=== PATIENT | male | born 1965 | race Caucasian/White ===

== ENCOUNTER 2018-07-16 07:15 | Observation (INO) ==
--- NOTE | 2018-07-16 07:51 | Emergency Department Note ---
Disposition Clinical Impression: Left upper quadrant pain, Multiple rib fractures involving four or more ribs, Lactic acidemia Disposition: Admitted As Inpatient Condition: Fair Time of Disposition: 13:06 Abdominal Pain HPI - General Chief Complaint: ED Abdominal Pain Stated Complaint: LUQ pain Time Seen by Provider: 07/16/18 07:23 Source: patient Nursing Notes Reviewed: Yes Vital Signs Reviewed: Yes - History of Present Illness HPI Narrative: 53-year-old male presents from home for evaluation of left upper quadrant pain. This is a bit persistent for the past 3 months. Patient had a mechanical fall onto the edge of a bucket of [employer]. He has been evaluated by his primary care physician who recommended watchful waiting. Patient presents today because he has persistent pain which he localizes to the left inferior aspect of the ribs in the midaxillary line. Patient also has associated flulike symptoms but he is far less concerned about the symptoms and he has since left upper quadrant pain. PMH: None Habits: Currently everyday smoker. Heavy alcohol use. ROS: Positive: As above Negative: Recent trauma, dysuria, material, measured fever, pain with breathing Pain Scale: 5 - Related Data Home Medications Medication Instructions Recorded Confirmed Losartan 50 mg DAILY 07/16/18 07/16/18 Naproxen Sodium [Aleve] 220 mg PO PRN PRN 07/16/18 07/16/18 Allergies Allergy/AdvReac Type Severity Reaction Status Date / Time No Known Allergies Allergy Verified 07/16/18 07:21 All systems ED: reviewed and negative except as stated. Review of Systems: As Per HPI Abdominal Pain PMH - Past Medical History Medical history: Reports: other Male Surgical History: Reports: orthopedic, other Psychiatric history: Reports: no psych history - Social History Smoking status: Current every day smoker Alcohol use: Reports: heavy Drug use: Reports: none Physical Exam Vital Signs Reviewed General: Patient is alert, oriented, and in no acute distress. Head: atraumatic, normocephalic Eye: normal appearance, PERRL, EOMI, no scleral icterus, no conjunctival injection ENT: mucous membranes moist, normal external ear exam Neck: normal inspection, trachea midline, full ROM Chest: normal inspection, symmetric chest rise. Pain to palpation of left in ferior ribs abdomen. Respiratory: Good respiratory effort. Bilateral breath sounds are clear without wheezing, crackles, or rhonchi. Cardiovascular: Regular rate and rhythm. No clicks, rubs, gallops, or murmors. Normal heart sounds. Abdomen: Bowel sounds present normoactive. Abdomen is soft, nondistended, and nontender. No guarding or rebound. No organomegaly noted. Musculoskeletal: Spontaneously moving all extremities. Skin: warm, dry, intact. Neuro: GCS 15. No focal neurologic deficits observed. Psych: Patient's affect is appropriate for situation. - General Limitations: no limitations General appearance: alert, in no apparent distress Course Course Narrative: Lidocaine pain patch provided for the patient's left-sided rib pain. Chest x- ray is unremarkable. Rib films show left anterolateral eighth through 11 rib fracture likely secondary to the patient's fall several months ago. CT abdomen pelvis redemonstrated the rib fractures as well as fatty liver and emphysema. Urinalysis was ordered as patient had no complaints of dysuria; CT pelvis is incidentally found indeterminate bladder wall thickening. Patient's lab work is concerning for mild leukocytosis as well as lactic acid of 4.0. Patient is receiving fluids. I do not have expiration for his lactic acidemia or leukocytosis. Patient is agreeable to admission for pain control, continued fluids and evaluation for his laboratory abnormalities. I discussed the above with the admitting hospitalist, Dr. Russell, who agrees to accept patient for continued evaluation monitoring. Ribs w/Chest X-Ray 07/16/18 07:47 IMPRESSION: Subacute healing nondisplaced fractures of the left anterolateral 8th through 11th ribs. No evidence of pneumothorax. No acute process in the lungs. D/ / Ag Albright MD / Ag Albright MD Interpreting Provider: Ag Albright MD Abdomen/Pelvis CT 07/16/18 09:35 IMPRESSION: 1. No acute solid organ injury. 2. Subacute left 9th and 10th posterolateral rib fractures. 3. Fatty liver. 4. Emphysema with bibasilar atelectasis or scarring. 5. Indeterminate bladder wall thickening. Correlate urinalysis versus direct visual inspection as warranted. D/ / 07/16/2018 10:33:59 Pankaj Pichardo MD / mina Interpreting Provider: Pankaj Pichardo MD Vital Signs Temperature 98.7 F 07/16/18 07:16 Pulse Rate 145 07/16/18 07:16 Respiratory Rate 18 07/16/18 07:16 Blood Pressure 92/77 07/16/18 07:16 O2 Sat by Pulse Oximetry 98 07/16/18 07:16 Temperature 98.7 F 07/16/18 07:16 Pulse Rate 107 07/16/18 12:16 Respiratory Rate 16 07/16/18 12:16 Blood Pressure 148/82 07/16/18 12:16 O2 Sat by Pulse Oximetry 97 07/16/18 12:16 Oxygen Delivery Oxygen Delivery Room Air Abdominal Pain - Lab Data Result diagrams: 07/16/18 07:40 07/16/18 07:40 Lab Results 07/16/18 07/16/18 07/16/18 Range/Units 07:40 07:40 07:40 WBC 15.8 H (4.3-11.1) K/mcL RBC 4.60 (4.19-5.50) M/mcL Hgb 15.9 (12.9-16.9) g/dL Hct 46.6 (37.5-50.1) % MCV 101.3 H (83.0-100.0) fL MCH 34.6 H (28.0-33.3) pg MCHC 34.1 (31.6-35.5) g/dL RDW 13.2 (11.5-14.5) % Plt Count 330 (140-400) K/mcL MPV 10.0 (9.4-12.4) fL Immature Gran % 0.4 (0-4) % Seg Neutrophils % 82.0 % Lymphocytes % 9.4 % Monocytes % 7.0 % Eosinophils % 0.4 % Basophils % 0.8 % Neutrophils # 12.9 H (1.6-8.9) K/mcL Lymphocytes # 1.5 (0.6-4.6) K/mcL Monocytes # 1.1 (0.0-1.3) K/mcL Eosinophils # 0.1 (0.0-0.6) K/mcL Basophils # 0.1 (0.0-0.2) K/mcL PT 10.9 (9.4-12.1) Seconds INR 1.0 Sodium 136 (136-145) mEq/L Potassium 3.8 (3.5-5.1) mEq/L Chloride 96 L (98-107) mEq/L Carbon Dioxide 18 L (23-29) mEq/L BUN 17 (6-20) mg/dL Creatinine 0.84 (0.70-1.30) mg/dL Est GFR ( Amer) > 60 (> 60) Est GFR (Non-Af Amer) > 60 (> 60) BUN/Creatinine Ratio 20 (6-26) Glucose 75 (70-105) mg/dL Calculated Osmolality 282 (280-300) Lactic Acid (0.5-2.2) mmol/L Calcium 9.2 (8.6-10.3) mg/dL Total Bilirubin 1.1 H (0.3-1.0) mg/dL Direct Bilirubin 0.3 H (0.0-0.2) mg/dL Indirect Bilirubin 0.8 (0.0-1.2) mg/dL AST 85 H (13-39) Units/L ALT 34 (7-52) Units/L Alkaline Phosphatase 71 (34-104) Units/L Serum Total Protein 8.4 (6.4-8.9) g/dL Albumin 4.5 (3.5-5.7) g/dL Globulin 3.9 H (2.4-3.5) g/dL Albumin/Globulin Ratio 1.2 (1.1-2.2) Lipase 34 (11-82) Units/L Urine Color (Yellow) Urine Clarity (Clear) Urine pH (5.0-8.0) pH Units Ur Specific [place] (1.010-1.025) Urine Protein (Neg-Trace) mg/dL Urine Glucose (UA) (Normal) mg/dL Urine Ketones (Negative) mg/dL Urine Blood (Negative) Urine Nitrite (Negative) Urine Bilirubin (Negative) Urine Urobilinogen (Normal) mg/dL Ur Leukocyte Esterase (Negative) Urine Microscopic RBC (0-3) per hpf Urine Microscopic WBC (0-3) per hpf Ur Squamous Epith Cells (None-Few) per lpf Urine Bacteria (None-Few) per hpf Hyaline Casts (None-Few) per lpf Ur Culture Indicated? (NO) 07/16/18 07/16/18 Range/Units 08:53 09:21 WBC (4.3-11.1) K/mcL RBC (4.19-5.50) M/mcL Hgb (12.9-16.9) g/dL Hct (37.5-50.1) % MCV (83.0-100.0) fL MCH (28.0-33.3) pg MCHC (31.6-35.5) g/dL RDW (11.5-14.5) % Plt Count (140-400) K/mcL MPV (9.4-12.4) fL Immature Gran % (0-4) % Seg Neutrophils % % Lymphocytes % % Monocytes % % Eosinophils % % Basophils % % Neutrophils # (1.6-8.9) K/mcL Lymphocytes # (0.6-4.6) K/mcL Monocytes # (0.0-1.3) K/mcL Eosinophils # (0.0-0.6) K/mcL Basophils # (0.0-0.2) K/mcL PT (9.4-12.1) Seconds INR Sodium (136-145) mEq/L Potassium (3.5-5.1) mEq/L Chloride (98-107) mEq/L Carbon Dioxide (23-29) mEq/L BUN (6-20) mg/dL Creatinine (0.70-1.30) mg/dL Est GFR ( Amer) (> 60) Est GFR (Non-Af Amer) (> 60) BUN/Creatinine Ratio (6-26) Glucose (70-105) mg/dL Calculated Osmolality (280-300) Lactic Acid 4.0 H* (0.5-2.2) mmol/L Calcium (8.6-10.3) mg/dL Total Bilirubin (0.3-1.0) mg/dL Direct Bilirubin (0.0-0.2) mg/dL Indirect Bilirubin (0.0-1.2) mg/dL AST (13-39) Units/L ALT (7-52) Units/L Alkaline Phosphatase (34-104) Units/L Serum Total Protein (6.4-8.9) g/dL Albumin (3.5-5.7) g/dL Globulin (2.4-3.5) g/dL Albumin/Globulin Ratio (1.1-2.2) Lipase (11-82) Units/L Urine Color Dark Yellow (Yellow) Urine Clarity Clear (Clear) Urine pH 5.5 (5.0-8.0) pH Units Ur Specific [place] 1.020 (1.010-1.025) Urine Protein 100 H (Neg-Trace) mg/dL Urine Glucose (UA) Normal (Normal) mg/dL Urine Ketones 80 H (Negative) mg/dL Urine Blood Negative (Negative) Urine Nitrite Negative (Negative) Urine Bilirubin Small H (Negative) Urine Urobilinogen Normal (Normal) mg/dL Ur Leukocyte Esterase Negative (Negative) Urine Microscopic RBC 0-3 (0-3) per hpf Urine Microscopic WBC 0-3 (0-3) per hpf Ur Squamous Epith Cells Many H (None-Few) per lpf Urine Bacteria None Seen (None-Few) per hpf Hyaline Casts None Seen (None-Few) per lpf Ur Culture Indicated? NO (NO)
--- NOTE | 2018-07-16 07:53 | Emergency Department Note ---
Disposition Clinical Impression: Left upper quadrant pain Disposition: Still a Patient Forms: ED Satisfaction Letter, Work/School Release General Adult HPI - General Chief complaint: ED Abdominal Pain Stated complaint: LUQ pain Time Seen by Provider: 07/16/18 07:23 Source: patient Limitations: no limitations Nursing Notes Reviewed: Yes Vital Signs Reviewed: Yes - History of Present Illness HPI Narrative: ED attending attestation note: I examined this patient and my medical decision-making was reviewed with the emergency medicine resident BRIELLE CHAO agree with the documented findings, disposition and treatment plan as described except to the extent set forth below. Briefly: 53-year-old male in April "fell onto a bucket of rocks". His been having persistent left upper quadrant pain. No fever, chills, chest pain, shortness breath, sputum, appetite changes, weight loss or weight gain, fevers or chills. Skin rashes. Sore throat. No contacts exotic food or recent travel. Patient says he has been followed up by his primary care physician is said "let us just watch it". Patient states the reason he presented today was "it is just not getting better". Patient has some mild discomfort in the left upper quadrant there is no palpable discernible splenomegaly or guarding or rebound. Patient will get a chest x-ray and a bedside ultrasound. Disposition pending. Patient stable. Pain Scale: 5 - Related Data Allergies Allergy/AdvReac Type Severity Reaction Status Date / Time No Known Allergies Allergy Verified 07/16/18 07:21 Past Medical History - Past Medical History Medical history: Reports: other Psychiatric history: Reports: no psych history - Social History Smoking Status: Current every day smoker Smokeless Tobacco Status: No Alcohol use: Reports: heavy Drug use: Reports: none Physical Exam - General Limitations: no limitations General appearance: alert, in no apparent distress Course Vital Signs Temperature 98.7 F 07/16/18 07:16 Pulse Rate 145 07/16/18 07:16 Respiratory Rate 18 07/16/18 07:16 Blood Pressure 92/77 07/16/18 07:16 O2 Sat by Pulse Oximetry 98 07/16/18 07:16 Temperature 98.7 F 07/16/18 07:16 Pulse Rate 145 07/16/18 07:16 Respiratory Rate 18 07/16/18 07:16 Blood Pressure 92/77 07/16/18 07:16 O2 Sat by Pulse Oximetry 98 07/16/18 07:16 Oxygen Delivery Oxygen Delivery Room Air
[2018-07-16 08:36] LABS: Basophils # 0.1 K/mcL (0.0-0.2); Basophils % 0.8 %; Eosinophils # 0.1 K/mcL (0.0-0.6); Eosinophils % 0.4 %; Hematocrit 46.6 % (37.5-50.1); Hemoglobin 15.9 g/dL (12.9-16.9); Immature Granulocytes % 0.4 % (0-4); Lymphocytes # 1.5 K/mcL (0.6-4.6); Lymphocytes % 9.4 %; Mean Corpuscular HGB Conc 34.1 g/dL (31.6-35.5); Mean Corpuscular Hemoglobin 34.6 pg (28.0-33.3); Mean Corpuscular Volume 101.3 fL (83.0-100.0); Monocytes # 1.1 K/mcL (0.0-1.3); Neutrophils # 12.9 K/mcL (1.6-8.9); Platelet Count 330 K/mcL (140-400); Red Cell Distribution Width 13.2 % (11.5-14.5)
[2018-07-16 08:43] LABS: Prothrombin Time 10.9 Seconds (9.4-12.1)
[2018-07-16 08:46] LABS: Alanine Aminotransferase 34 Units/L (7-52); Albumin 4.5 g/dL (3.5-5.7); Albumin/Globulin Ratio 1.2 (1.1-2.2); Alkaline Phosphatase 71 Units/L (34-104); Aspartate Amino Transferase 85 Units/L (13-39); BUN/Creatinine Ratio 20 (6-26); Bilirubin,Direct 0.3 mg/dL (0.0-0.2); Bilirubin,Indirect 0.8 mg/dL (0.0-1.2); Bilirubin,Total 1.1 mg/dL (0.3-1.0); Blood Urea Nitrogen 17 mg/dL (6-20); Calcium 9.2 mg/dL (8.6-10.3); Carbon Dioxide 18 mEq/L (23-29); Chloride 96 mEq/L (98-107); Globulin 3.9 g/dL (2.4-3.5); Glucose 75 mg/dL (70-105); Lipase 34 Units/L (11-82); Osmolality,Calculated 282 (280-300); Potassium 3.8 mEq/L (3.5-5.1); Sodium 136 mEq/L (136-145); Total Protein 8.4 g/dL (6.4-8.9); eGFR For Non-African Americans > 60 (> 60)
[2018-07-16] MEDS ORDERED: Isovue-370 500 ML BOTTLE IVP ONE (09:35)
[2018-07-16] MEDS ORDERED: 0.9 % Sodium Chloride 1,000 ML IVC ONE (09:36)
[2018-07-16 11:09] LABS: Bilirubin,Urine Small (Negative); Blood,Urine Negative (Negative); Clarity,Urine Clear (Clear); Color,Urine Dark Yellow (Yellow); Glucose,Urine (UA) Normal (Normal); Ketones,Urine 80 mg/dL (Negative); Leukocyte Esterase,Urine Negative (Negative); Nitrite,Urine Negative (Negative); PH,Urine 5.5 pH Units (5.0-8.0); Protein,Urine 100 mg/dL (Neg-Trace); Urobilinogen,Urine Normal (Normal)
[2018-07-16 11:10] LABS: Bacteria,Urine None Seen per hpf (None-Few); Hyaline Casts,Urine None Seen per lpf (None-Few); RBC,Urine 0-3 per hpf (0-3); Squamous Epithelial Cell,Urine Many per lpf (None-Few); WBC,Urine 0-3 per hpf (0-3)
--- NOTE | 2018-07-16 14:40 | Internal Med History&Physical ---
<Jan Boston - Last Filed: 07/16/18 15:25> Date of Encounter: 07/16/18 Time of Encounter: 14:40 Internal Medicine - H&P: HPI Chief complaint: Left upper quadrant pain Admitted From: Emergency Dept Plans for Post Hospital Care: Home History of present illness: Mr. Sharma is a 53 year old male PMHx alcohol use disorder, hypertension, s/p fall in April 2018 presents with persistent LUQ abdominal pain for the last 3 months. Pain is sharp in nature, does not radiate, worse with inhalation and exertion, currently 6/10. Denies any history of abdominal surgery. He also admits to subjective fever, chills, nausea, and vomiting that started last Monday. Patient has poor appetite as well. Does admit to being a chronic smoker and drinks 3 beers daily. Denies voiding difficulty, dysuria, hematuria, diarrhea, constipation, chest pain, SOB, cough, sore throat. Denies any sick contacts exam his mom has a c urrent UTI. Denies recent travel or known insect bites. Denies any numbness or tingling. He does admit to resting tremors. Past Med Surg Social Fam HX - Past Medical History Medical history: hypertension Additional medical history: Mgus (blood condition) Psychiatric history: anxiety - Past Surgical History Additional surgical history: Tib/Fib 1982 - Social History Smoking Status: Current every day smoker Smokeless Tobacco Status: No Alcohol use: heavy Drug use: none - Family History Mother History Unknown: Yes Adopted: Yes Internal Medicine - H&P: Meds Losartan 50 mg DAILY 07/16/18 [History] Naproxen Sodium [Aleve] 220 mg PO PRN PRN 07/16/18 [History] Allergy/AdvReac Type Severity Reaction Status Date / Time No Known Allergies Allergy Verified 07/16/18 07:21 All Systems PM: A 10-system review of systems was performed and is negative for pertinent findings except as documented above in the HPI. - Constitutional Constitutional: as per HPI - EENT Eyes: as per HPI Ears: as per HPI Nose, mouth and throat: as per HPI - Breasts Breasts: as per HPI - Cardiovascular Cardiovascular ROS IM: as per HPI - Respiratory Respiratory: as per HPI - Gastrointestinal Gastrointestinal: as per HPI - Genitourinary Genitourinary ROS male: as per HPI - Musculoskeletal Musculoskeletal ROS IM: as per HPI - Integumentary Integumentary IM: as per HPI - Neurological Neurological ROS: as per HPI - Constitutional Vitals: Temp Pulse Resp BP Pulse Ox 98.3 F 93 18 164/78 95 07/16/18 14:12 07/16/18 14:12 07/16/18 14:12 07/16/18 14:12 07/16/18 14:12 Exam: As below - Head Head exam: Present: atraumatic, normocephalic - Eye Eye exam: Present: PERRL, conjuntiva pink, sclera anicteric Pupils: Present: PERRL - Neck Neck exam general surgery: Present: supple, trachea midline. Absent: lymphadenopathy - Respiratory Respiratory exam: Present: CTAB. Absent: accessory muscle use, rales, rhonchi, wheezes - Cardiovascular Cardiovascular exam: Present: +S1, +S2, tachycardia. Absent: diastolic murmur, gallop, rubs, systolic murmur - GI/Abdominal GI/Abdominal exam: Present: normal bowel sounds, soft, no peritoneal signs. Absent: distended, guarding, rebound, tenderness Additional comments: LUQ tenderness with deep palpation. - Extremities Exam Extremities exam: Present: warm, radial pulses palpable and symmetrical. Absent: calf tenderness, cyanotic, pedal edema - Neurological Exam Neurological exam: Present: CN II-XII intact, oriented X3, no focal deficits. Absent: pronater drift, facial droop, speech deficit - Skin Skin exam: Present: dry, intact Internal Med - H&P Results - Labs CBC & Chem 7: 07/16/18 07:40 07/16/18 07:40 Labs: Short CBC 07/16/18 Range/Units 07:40 WBC 15.8 H (4.3-11.1) K/mcL Hgb 15.9 (12.9-16.9) g/dL Hct 46.6 (37.5-50.1) % Plt Count 330 (140-400) K/mcL Neutrophils # 12.9 H (1.6-8.9) K/mcL BMP 07/16/18 07:40 Sodium 136 Potassium 3.8 Chloride 96 L Carbon Dioxide 18 L BUN 17 Creatinine 0.84 Glucose 75 Calcium 9.2 Liver Function 07/16/18 Range/Units 07:40 Total Bilirubin 1.1 H (0.3-1.0) mg/dL Direct Bilirubin 0.3 H (0.0-0.2) mg/dL AST 85 H (13-39) Units/L ALT 34 (7-52) Units/L Alkaline Phosphatase 71 (34-104) Units/L Albumin 4.5 (3.5-5.7) g/dL Urine 07/16/18 Range/Units 09:21 Urine Color Dark Yellow (Yellow) Urine Clarity Clear (Clear) Urine pH 5.5 (5.0-8.0) pH Units Ur Specific [place] 1.020 (1.010-1.025) Urine Protein 100 H (Neg-Trace) mg/dL Urine Glucose (UA) Normal (Normal) mg/dL - Impressions ITS Impressions Ribs w/Chest X-Ray 07/16/18 07:47 IMPRESSION: Subacute healing nondisplaced fractures of the left anterolateral 8th through 11th ribs. No evidence of pneumothorax. No acute process in the lungs. D/ / Ag Albright MD / Ag Albright MD Interpreting Provider: Ag Albright MD Abdomen/Pelvis CT 07/16/18 09:35 IMPRESSION: 1. No acute solid organ injury. 2. Subacute left 9th and 10th posterolateral rib fractures. 3. Fatty liver. 4. Emphysema with bibasilar atelectasis or scarring. 5. Indeterminate bladder wall thickening. Correlate urinalysis versus direct visual inspection as warranted. D/ / 07/16/2018 10:33:59 Pankaj Pichardo MD / mina Interpreting Provider: Pankaj Pichardo MD - Assessment and Plan (1) Lactic acidemia Current Visit: Yes Status: Acute Assessment and plan: Resolved. 53M PMHx alcoholism presents with LUQ pain and lactic acidosis. I suspect lactic acidosis was induced by alcohol. CXR with subacute healing nodisplaced fractures of the left anterolateral 8th through 11th ribs. No pneumothorax. CT abd/pelvis without acute solid organ damage. Noted subacute left 9th/10th posterolateral rib fractures, fatty liver, emphysema with atelectasis vs scarring. Indeterminate bladder wall thickening. Patient received IV bolus of 0.9% saline on admission. Recheck lactic acid 4.0 -> 1.3 Will give 1L bolus and continue maintenance fluids. Patient also reports improvement of symptoms. (2) Alcoholism Current Visit: Yes Status: Acute Assessment and plan: CIWA protocol started. Ativan 1mg q2h prn. NPO (3) Left upper quadrant pain Current Visit: Yes Status: Acute Assessment and plan: Pain management with oxycodone 5/325 likely 2/2 to alcoholic fatty liver. Will continue to monitor. Continue IVFs NPO (4) Multiple rib fractures involving four or more ribs Current Visit: Yes Status: Acute Assessment and plan: Oxycodone 5 as needed (5) Hypertension Current Visit: Yes Status: Acute Assessment and plan: Chronic issue. continue home meds. Qualifiers: Qualified Code(s): I10 - Essential (primary) hypertension (6) Leukocytosis Current Visit: Yes Status: Acute Assessment and plan: leukocytosis in the setting of alcohol induced lactic acidosis. UA has been unremarkable. Will monitor with CBC in AM. Qualifiers: Qualified Code(s): D72.829 - Elevated white blood cell count, unspecified (7) DVT prophylaxis Current Visit: Yes Status: Acute Assessment and plan: SQ heparin - Time Spent With Patient Total time spent is greater than 50% in coordination of care (as documented) at patient's floor/unit and/or counseling patient: Greater than 35 minutes <Amina Ramon - Last Filed: 07/16/18 16:09> Date of Encounter: 07/16/18 Internal Medicine - H&P: HPI History of present illness: Mr. Sharma is a 53 year old male All Systems PM: A 10-system review of systems was performed and is negative for pertinent findings except as documented above in the HPI. - Constitutional Vitals: Temp Pulse Resp BP Pulse Ox 98.3 F 93 18 164/78 95 07/16/18 14:12 07/16/18 14:12 07/16/18 14:12 07/16/18 14:12 07/16/18 14:12 Internal Med - H&P Results - Labs CBC & Chem 7: 07/16/18 07:40 07/16/18 07:40 Labs: Short CBC 07/16/18 Range/Units 07:40 WBC 15.8 H (4.3-11.1) K/mcL Hgb 15.9 (12.9-16.9) g/dL Hct 46.6 (37.5-50.1) % Plt Count 330 (140-400) K/mcL Neutrophils # 12.9 H (1.6-8.9) K/mcL BMP 07/16/18 07:40 Sodium 136 Potassium 3.8 Chloride 96 L Carbon Dioxide 18 L BUN 17 Creatinine 0.84 Glucose 75 Calcium 9.2 Liver Function 07/16/18 Range/Units 07:40 Total Bilirubin 1.1 H (0.3-1.0) mg/dL Direct Bilirubin 0.3 H (0.0-0.2) mg/dL AST 85 H (13-39) Units/L ALT 34 (7-52) Units/L Alkaline Phosphatase 71 (34-104) Units/L Albumin 4.5 (3.5-5.7) g/dL Urine 07/16/18 Range/Units 09:21 Urine Color Dark Yellow (Yellow) Urine Clarity Clear (Clear) Urine pH 5.5 (5.0-8.0) pH Units Ur Specific [place] 1.020 (1.010-1.025) Urine Protein 100 H (Neg-Trace) mg/dL Urine Glucose (UA) Normal (Normal) mg/dL - Impressions ITS Impressions Ribs w/Chest X-Ray 07/16/18 07:47 IMPRESSION: Subacute healing nondisplaced fractures of the left anterolateral 8th through 11th ribs. No evidence of pneumothorax. No acute process in the lungs. D/ / Ag Albright MD / Ag Albright MD Interpreting Provider: Ag Albright MD Abdomen/Pelvis CT 07/16/18 09:35 IMPRESSION: 1. No acute solid organ injury. 2. Subacute left 9th and 10th posterolateral rib fractures. 3. Fatty liver. 4. Emphysema with bibasilar atelectasis or scarring. 5. Indeterminate bladder wall thickening. Correlate urinalysis versus direct visual inspection as warranted. D/ / 07/16/2018 10:33:59 Pankaj Pichardo MD / mina Interpreting Provider: Pankaj Pichardo MD - Time Spent With Patient Total time spent is greater than 50% in coordination of care (as documented) at patient's floor/unit and/or counseling patient: - Attending Attestation I examined this patient and my medical decision-making was reviewed with the Resident Physician Dr. Boston. I agree with the documented findings, disposition and treatment plan as described except to the extent set forth below. Mr. Sharma is a 53 year old male PMHx alcohol dependence, hypertension and tobacco dependence pt presented to ER complaining about left lateral chest wall pain. Pt stated he had a fall in April 2018, since then he has persistent LUQ abdominal pain for the last 3 months. Pain is sharp in nature, does not radiate, worse with inhalation and exertion, currently 6/10. He did mention to our social media marketing specialist he had a fall yesterday at his home. He fell on water hose. He does admit to being a chronic smoker and alcoholic , drinks 3 beers daily. Had last alcohol last night. His CXR showed sub acute Left samy lateral rib fx from 8th though 11 th ribs. Gen: A, A, O x3 tremors + Chest: Diminished BS b/l, no crackles, no rales, Left chest wall pain Heart: S1S2 + RRR, No murmurs a/p 1. Left rib fx, Left chest wall pain symptomatic and supportive care 2. Chronic alcohol dependence concerning for DT's on CIWA protocol
[2018-07-16] MEDS: 0.9 % Sodium Chloride 1,000 ML IVC SCH ×2 (15:35→22:03)
[2018-07-16] MEDS ORDERED: *HR* OxyCODONE/APAP 5/325 TABLET PO PRN (15:41)
[2018-07-16] MEDS: *HR* Heparin 5,000 UNIT/ML VIAL SQ SCH (18:05)
[2018-07-17] MEDS ORDERED: NON-FORMULARY MEDICATION 1 EACH EACH (Naproxen Sodium [Aleve] 220 MG) PO PRN (04:05)
[2018-07-17] MEDS ORDERED: NIFEdipine 10 MG CAPSULE PO ONE (04:19)
[2018-07-17] MEDS: 0.9 % Sodium Chloride 1,000 ML IVC SCH (04:43)
[2018-07-17] MEDS: *HR* Heparin 5,000 UNIT/ML VIAL SQ SCH (04:44)
[2018-07-17 07:37] VITALS: BP 150/77
--- NOTE | 2018-07-17 09:36 | Discharge Summary ---
<Jan Boston - Last Filed: 07/17/18 09:54> - NOTES TO OUTPATIENT PROVIDER Notes to Outpatient Provider: 53M PMHx alcohol use disorder, HTN, s/p fall April 2018 presented to ED with LUQ abdominal pain. Blood work significant for alcohol induced lactic acidosis that resolved with IVF. He is now on Percocet 5 for subacute left rib fractures from fall. Date of Encounter: 07/17/18 Time of Encounter: 08:20 - Discharge Diagnosis (1) Lactic acidemia Priority: Primary Status: Acute (2) Alcoholism Priority: Secondary Status: Acute (3) Left upper quadrant pain Priority: Primary Status: Acute (4) Multiple rib fractures involving four or more ribs Priority: Primary Status: Acute (5) Hypertension Priority: Secondary Status: Acute Qualifiers: Qualified Code(s): I10 - Essential (primary) hypertension (6) Leukocytosis Priority: Secondary Status: Acute Qualifiers: Qualified Code(s): D72.829 - Elevated white blood cell count, unspecified Hospital course: Mr. Sharma is a 53 year old male PMHx alcohol use disorder, hypertension, s/p fall in April 2018 presents with persistent LUQ abdominal pain for the last 3 months. Pain is sharp in nature, does not radiate, worse with inhalation and exertion, currently 6/10. Denies any history of abdominal surgery. He also admits to subjective fever, chills, nausea, and vomiting that started last Monday. Patient has poor appetite as well. Does admit to being a chronic smoker and drinks 3 beers daily. Denied voiding difficulty, dysuria, hematuria, diarrhea, constipation, chest pain, SOB, cough, sore throat. Denies any sick contacts exam his mom has a current UTI. Denies recent travel or known insect bites. Denies any numbness or tingling. He does admit to resting tremors. XR significant for subacute healing nondisplaced fractures of the left anterior 8th-11th ribs. Abdominal CT with IV contrast demonstrated subacute fractures of left 9th and 10th posterolateral ribs, fatty liver, emphysema with bibasilar atelectasis or scarring. Indeterminate bladder wall thickening. Blood work significant for leukocytosis, lactic acidosis (lactic acid - 4.0). UA was unremarkable. Patient was admitted for observation of alcoholic lactic acidosis and subacute left sided rib fractures. Recheck of lactic acid returned to 1.3 after 2 bolus of IVFs and maintenance fluids. LUQ pain controlled with percocet 5. He is now back to baseline. Patient is to be discharged with 5 days of Percocet for pain control and follow up with PCP. Discharge discussed with: patient - Time Spent with Patient Total time spent providing and/or coordinating discharge services: Time spent: D/C greater than 8 hours after Admission - Discharge Medications Prescriptions: New Oxycodone HCl/Acetaminophen [Percocet 5-325 mg Tablet] 1 each PO BID 5 Days #10 tablet Continue RX: Naproxen Sodium [Aleve] 220 mg PO PRN PRN PRN Reason: back pain Losartan 50 mg DAILY Home Medications: Losartan 50 mg DAILY 07/16/18 [History] RX: Naproxen Sodium [Aleve] 220 mg PO PRN PRN 07/16/18 [History] Oxycodone HCl/Acetaminophen [Percocet 5-325 mg Tablet] 1 each PO BID 5 Days #10 tablet 07/17/18 [Rx] Allergies/Adverse Reactions: Allergy/AdvReac Type Severity Reaction Status Date / Time No Known Allergies Allergy Verified 07/16/18 07:21 Date of admission: 07/16/18 12:28 Primary care physician: Jose Choudhury Discharging clinician: Jan Boston Anticipated date of discharge: 07/17/18 - Constitutional Vitals: Temp Pulse Resp BP Pulse Ox 97.8 F 81 18 150/77 95 07/17/18 07:34 07/17/18 07:34 07/17/18 07:34 07/17/18 07:34 07/17/18 07:34 Exam: As below - Head Head exam: Present: atraumatic, normocephalic - Eye Eye exam: Present: PERRL, conjuntiva pink, sclera anicteric Pupils: Present: PERRL - Neck Neck exam general surgery: Present: supple, trachea midline. Absent: lymphadenopathy - Respiratory Respiratory exam: Present: CTAB. Absent: accessory muscle use, rales, rhonchi, wheezes - Cardiovascular Cardiovascular exam: Present: RRR, +S1, +S2. Absent: diastolic murmur, gallop, rubs, systolic murmur - GI/Abdominal GI/Abdominal exam: Present: normal bowel sounds, soft, no peritoneal signs. Absent: distended, tenderness - Extremities Exam Extremities exam: Present: warm, radial pulses palpable and symmetrical. Absent: calf tenderness, cyanotic, pedal edema - Neurological Exam Neurological exam: Present: CN II-XII intact, oriented X3, no focal deficits. Absent: pronater drift, facial droop, speech deficit - Skin Skin exam: Present: dry, intact - Patient Status Disposition: Home, Self-Care Condition: Fair Functional capacity at discharge: independent ambulation Overall status at discharge: patient is back to baseline - Discharge Instructions Instructions: Oxycodone/Acetaminophen (By mouth) Follow Up With: Jose Choudhury Jr [Primary Care Provider] - 07/24/18 2:00 pm (Please bring Discharge paper work with you to your appointment.) - Diet and Activity Activity: resume usual activities as tolerated Diet: advance to your usual diet <Amina Ramon - Last Filed: 07/17/18 14:10> Date of Encounter: 07/17/18 Hospital course: Mr. Sharma is a 53 year old male - Time Spent with Patient Total time spent providing and/or coordinating discharge services: Date of admission: 07/16/18 12:28 Primary care physician: Jose Choudhury - Constitutional Vitals: Temp Pulse Resp BP Pulse Ox 97.8 F 81 18 150/77 95 07/17/18 07:34 07/17/18 07:34 07/17/18 07:34 07/17/18 07:34 07/17/18 07:34 - Attending Attestation I examined this patient and my medical decision-making was reviewed with the Resident Physician Dr. Boston. I agree with the documented findings, disposition and treatment plan as described except to the extent set forth below. Mr. Sharma is a 53 year old male PMHx alcohol dependence, hypertension and tobacco dependence pt presented to ER complaining about left lateral chest wall pain. Pt stated he had a fall in April 2018, since then he has persistent LUQ abdominal pain for the last 3 months. Pain is sharp in nature, does not radiate, worse with inhalation and exertion, currently 6/10. He did mention to our so [employer] worker he had a fall yesterday at his home. He fell on water hose. He does admit to being a chronic smoker and alcoholic , drinks 3 beers daily. Had last alcohol last night. His CXR showed sub acute Left samy lateral rib fx from 8th though 11 th ribs. His chest wall pain tolerable with current medication Gen: A, A, O x3 No more tremors. Chest: Diminished BS b/l, no crackles, no rales, Left chest wall pain Heart: S1S2 + RRR, No murmurs a/p 1. Left rib fx, Left chest wall pain symptomatic and supportive care Pain medication as needed encouraged the pt to use more frequent incentive spirometry 2. Chronic alcohol dependence concerning for DT's on CIWA protocol Medically stable to d/c home today
== END 2018-07-17 10:49 | disposition home or self-care (01) ==
LOC: EMEROOARM 07:15 → 3BNU 07:15 → SUATTDRO 12:28 → 3BNU 13:43
PROVIDERS: ADMIT Internal Medicine Nephrology; ATTEND Family Medicine

== ENCOUNTER 2020-02-20 11:36 | Inpatient (IN) ==
[2020-02-20] MEDS ORDERED: 0.9 % Sodium Chloride 1,000 ML IVC ONE (12:09)
[2020-02-20 14:51] LABS: Alanine Aminotransferase 32 Units/L (7-52); Albumin 3.2 g/dL (3.5-5.7); Albumin/Globulin Ratio 1.1 (1.1-2.2); Alkaline Phosphatase 202 Units/L (34-104); Aspartate Amino Transferase 90 Units/L (13-39); BUN/Creatinine Ratio 29 (6-26); Bilirubin,Total 2.9 mg/dL (0.3-1.0); Blood Urea Nitrogen 21 mg/dL (6-20); Calcium 7.5 mg/dL (8.6-10.3); Carbon Dioxide 20 mEq/L (23-29); Chloride 74 mEq/L (98-107); Globulin 2.9 g/dL (2.4-3.5); Glucose 97 mg/dL (70-105); Osmolality,Calculated 233 (280-300); Potassium 3.5 mEq/L (3.5-5.1); Sodium 110 mEq/L (136-145); Total Protein 6.1 g/dL (6.4-8.9); Troponin I < 0.03 ng/mL (< 0.04); eGFR For African Americans > 60 (> 60); eGFR For Non-African Americans > 60 (> 60)
[2020-02-20 15:13] LABS: Basophils % 0.4 %; Eosinophils % 0.4 %; Hematocrit 26.1 % (37.5-50.1); Hemoglobin 9.9 g/dL (12.9-16.9); Immature Granulocytes % 1.1 % (0-4); Lymphocytes # 0.4 K/mcL (0.6-4.6); Lymphocytes % 6.7 %; Mean Corpuscular Hemoglobin 38.5 pg (28.0-33.3); Mean Corpuscular Volume 101.6 fL (83.0-100.0); Mean Platelet Volume 10.3 fL (9.4-12.4); Monocytes # 0.5 K/mcL (0.0-1.3); Monocytes % 9.7 %; Neutrophils # 4.4 K/mcL (1.6-8.9); Nucleated Red Blood Cells 0.4 /100 WBC (0); Platelet Count 237 K/mcL (140-400); Red Blood Count 2.57 M/mcL (4.19-5.50); Red Cell Distribution Width 11.7 % (11.5-14.5); Segmented Neutrophils % 81.7 %; White Blood Count 5.4 K/mcL (4.3-11.1)
[2020-02-20 15:19] LABS: Mean Corpuscular HGB Conc 37.9 g/dL (31.6-35.5)
[2020-02-20 16:10] LABS: Ethanol < 10 mg/dL (Less than 10)
[2020-02-20] MEDS ORDERED: 0.9 % Sodium Chloride 1,000 ML IVC SCH (16:15)
[2020-02-20] MEDS ORDERED: Naloxone 0.4 MG/ML INJ IVP PRN (16:15)
[2020-02-20] MEDS ORDERED: Acetaminophen 325 MG TABLET PO PRN (16:15)
[2020-02-20 16:18] LABS: INR 1.2; Prothrombin Time 13.3 Seconds (9.4-12.1)
[2020-02-20 16:20] LABS: Activated Partial Thrombo Time 24.8 Seconds (26.0-36.0)
[2020-02-20] MEDS ORDERED: Ondansetron 4 MG/2 ML VIAL IVP PRN (16:23)
[2020-02-20] MEDS ORDERED: *HR* LORazepam 2 MG/ML VIAL IVP PRN (16:42)
[2020-02-20] MEDS: Thiamine (B-1) 100 MG, Folic Acid 1 MG, MVI, adult with vitamin K 10 ML in 0.9 % Sodi... IVPB SCH (17:34)
[2020-02-20 22:22] LABS: BUN/Creatinine Ratio 27 (6-26); Blood Urea Nitrogen 20 mg/dL (6-20); Calcium 7.2 mg/dL (8.6-10.3); Carbon Dioxide 24 mEq/L (23-29); Chloride 78 mEq/L (98-107); Glucose 88 mg/dL (70-105); Osmolality,Calculated 240 (280-300); Sodium 114 mEq/L (136-145); eGFR For African Americans > 60 (> 60); eGFR For Non-African Americans > 60 (> 60)
[2020-02-20] MEDS: *HR* Heparin 5,000 UNIT/ML VIAL SQ SCH (22:48)
[2020-02-20] MEDS ORDERED: Potassium Chloride 40 MEQ, Lidocaine 1% 2 ML in 0.9 % Sodium Chloride 500 ML IVPB ONE (23:00)
[2020-02-21] MEDS ORDERED: *HR* LORazepam 2 MG/ML VIAL IVP PRN ×3 (03:41→16:09)
[2020-02-21 04:54] LABS: Alanine Aminotransferase 29 Units/L (7-52); Albumin 3.1 g/dL (3.5-5.7); Albumin/Globulin Ratio 1.1 (1.1-2.2); Alkaline Phosphatase 212 Units/L (34-104); Aspartate Amino Transferase 93 Units/L (13-39); BUN/Creatinine Ratio 24 (6-26); Bilirubin,Total 2.2 mg/dL (0.3-1.0); Blood Urea Nitrogen 18 mg/dL (6-20); Calcium 7.4 mg/dL (8.6-10.3); Carbon Dioxide 25 mEq/L (23-29); Chloride 85 mEq/L (98-107); Globulin 2.8 g/dL (2.4-3.5); Glucose 73 mg/dL (70-105); Osmolality,Calculated 250 (280-300); Potassium 3.4 mEq/L (3.5-5.1); Sodium 120 mEq/L (136-145); Total Protein 5.9 g/dL (6.4-8.9); eGFR For African Americans > 60 (> 60); eGFR For Non-African Americans > 60 (> 60)
[2020-02-21] MEDS ORDERED: Potassium Chloride 20 MEQ, Lidocaine 1% 2 ML in 0.9 % Sodium Chloride 250 ML IVPB ONE (05:15)
[2020-02-21 06:13] LABS: Basophils % 0.5 %; Eosinophils # 0.1 K/mcL (0.0-0.6); Eosinophils % 1.7 %; Hematocrit 26.5 % (37.5-50.1); Hemoglobin 9.6 g/dL (12.9-16.9); Immature Granulocytes % 0.7 % (0-4); Lymphocytes # 0.4 K/mcL (0.6-4.6); Lymphocytes % 9.5 %; Mean Corpuscular HGB Conc 36.2 g/dL (31.6-35.5); Mean Corpuscular Hemoglobin 38.1 pg (28.0-33.3); Mean Corpuscular Volume 105.2 fL (83.0-100.0); Mean Platelet Volume 10.4 fL (9.4-12.4); Monocytes # 0.4 K/mcL (0.0-1.3); Neutrophils # 3.3 K/mcL (1.6-8.9); Platelet Count 266 K/mcL (140-400); Red Blood Count 2.52 M/mcL (4.19-5.50); Segmented Neutrophils % 77.6 %; White Blood Count 4.2 K/mcL (4.3-11.1)
[2020-02-21] MEDS: *HR* Heparin 5,000 UNIT/ML VIAL SQ SCH ×2 (08:58→16:02)
[2020-02-21] MEDS ORDERED: Folic Acid 1 MG TABLET PO SCH (09:00)
[2020-02-21] MEDS ORDERED: Thiamine (B-1) 100 MG TABLET PO SCH (09:00)
[2020-02-21] MEDS ORDERED: Vitamin B Complex/Vit C/Vit E 1 EACH TABLET PO SCH (09:00)
[2020-02-21] MEDS ORDERED: Dexmedetomidine HCl 400 MCG/100 ML MLS IVC SCH ×2 (09:45→16:09)
[2020-02-21 13:20] LABS: BUN/Creatinine Ratio 28 (6-26); Blood Urea Nitrogen 17 mg/dL (6-20); Calcium 7.2 mg/dL (8.6-10.3); Carbon Dioxide 21 mEq/L (23-29); Chloride 91 mEq/L (98-107); Glucose 81 mg/dL (70-105); Osmolality,Calculated 255 (280-300); Potassium 3.2 mEq/L (3.5-5.1); Sodium 122 mEq/L (136-145); eGFR For African Americans > 60 (> 60); eGFR For Non-African Americans > 60 (> 60)
[2020-02-21] MEDS: Thiamine (B-1) 100 MG, Folic Acid 1 MG, MVI, adult with vitamin K 10 ML in 0.9 % Sodi... IVPB SCH (16:01)
[2020-02-21] MEDS ORDERED: Acetaminophen 325 MG TABLET PO PRN (16:09)
[2020-02-21] MEDS ORDERED: Ondansetron 4 MG/2 ML VIAL IVP PRN (16:09)
[2020-02-22] MEDS: *HR* Heparin 5,000 UNIT/ML VIAL SQ SCH ×3 (06:33→20:56)
[2020-02-22] MEDS ORDERED: 0.9 % Sodium Chloride w KCl 40 MEQ/1,000 ML MLS IVC SCH (07:30)
[2020-02-22] MEDS: Vitamin B Complex/Vit C/Vit E 1 EACH TABLET PO SCH (08:22)
[2020-02-22 08:32] LABS: Basophils # 0.1 K/mcL (0.0-0.2); Basophils % 1.3 %; Eosinophils # 0.2 K/mcL (0.0-0.6); Eosinophils % 4.4 %; Hemoglobin 8.6 g/dL (12.9-16.9); Immature Granulocytes % 1.8 % (0-4); Lymphocytes % 17.5 %; Mean Corpuscular HGB Conc 35.8 g/dL (31.6-35.5); Mean Corpuscular Hemoglobin 38.2 pg (28.0-33.3); Mean Corpuscular Volume 106.7 fL (83.0-100.0); Mean Platelet Volume 10.1 fL (9.4-12.4); Monocytes # 0.8 K/mcL (0.0-1.3); Monocytes % 14.9 %; Neutrophils # 3.3 K/mcL (1.6-8.9); Platelet Count 292 K/mcL (140-400); Red Blood Count 2.25 M/mcL (4.19-5.50); Segmented Neutrophils % 60.1 %; White Blood Count 5.5 K/mcL (4.3-11.1)
[2020-02-22 08:53] LABS: Alanine Aminotransferase 31 Units/L (7-52); Albumin 2.9 g/dL (3.5-5.7); Albumin/Globulin Ratio 1.1 (1.1-2.2); Alkaline Phosphatase 188 Units/L (34-104); Aspartate Amino Transferase 102 Units/L (13-39); BUN/Creatinine Ratio 18 (6-26); Bilirubin,Total 1.1 mg/dL (0.3-1.0); Blood Urea Nitrogen 12 mg/dL (6-20); Calcium 7.5 mg/dL (8.6-10.3); Carbon Dioxide 25 mEq/L (23-29); Chloride 92 mEq/L (98-107); Globulin 2.7 g/dL (2.4-3.5); Glucose 100 mg/dL (70-105); Magnesium 0.9 mg/dL (1.6-2.6); Osmolality,Calculated 260 (280-300); Phosphorous 2.8 mg/dL (2.7-4.5); Sodium 125 mEq/L (136-145); Total Protein 5.6 g/dL (6.4-8.9); eGFR For African Americans > 60 (> 60); eGFR For Non-African Americans > 60 (> 60)
[2020-02-22] MEDS ORDERED: lisinopriL 10 MG TABLET PO SCH (09:00)
[2020-02-22] MEDS ORDERED: Thiamine (B-1) 100 MG, Folic Acid 1 MG, MVI, adult with vitamin K 10 ML in 0.9 % Sodi... IVPB SCH (18:00)
[2020-02-22] MEDS: Magnesium Oxide 400 MG TABLET PO SCH (20:55)
[2020-02-23 05:17] LABS: Basophils # 0.1 K/mcL (0.0-0.2); Eosinophils # 0.2 K/mcL (0.0-0.6); Eosinophils % 3.3 %; Hematocrit 20.4 % (37.5-50.1); Hemoglobin 7.5 g/dL (12.9-16.9); Immature Granulocytes % 4.6 % (0-4); Lymphocytes # 1.2 K/mcL (0.6-4.6); Lymphocytes % 17.9 %; Mean Corpuscular HGB Conc 36.8 g/dL (31.6-35.5); Mean Corpuscular Hemoglobin 38.5 pg (28.0-33.3); Mean Corpuscular Volume 104.6 fL (83.0-100.0); Mean Platelet Volume 9.9 fL (9.4-12.4); Monocytes % 15.4 %; Neutrophils # 3.9 K/mcL (1.6-8.9); Platelet Count 319 K/mcL (140-400); Red Blood Count 1.95 M/mcL (4.19-5.50); Red Cell Distribution Width 11.9 % (11.5-14.5); Segmented Neutrophils % 57.8 %; White Blood Count 6.8 K/mcL (4.3-11.1)
[2020-02-23 05:38] LABS: BUN/Creatinine Ratio 13 (6-26); Blood Urea Nitrogen 9 mg/dL (6-20); Calcium 7.3 mg/dL (8.6-10.3); Carbon Dioxide 22 mEq/L (23-29); Chloride 99 mEq/L (98-107); Glucose 92 mg/dL (70-105); Osmolality,Calculated 264 (280-300); Potassium 3.2 mEq/L (3.5-5.1); Sodium 128 mEq/L (136-145); eGFR For African Americans > 60 (> 60); eGFR For Non-African Americans > 60 (> 60)
[2020-02-23] MEDS: *HR* Heparin 5,000 UNIT/ML VIAL SQ SCH (06:15)
[2020-02-23] MEDS ORDERED: Thiamine (B-1) 100 MG TABLET PO SCH (09:00)
[2020-02-23] MEDS ORDERED: Folic Acid 1 MG TABLET PO SCH (09:00)
[2020-02-23] MEDS: Vitamin B Complex/Vit C/Vit E 1 EACH TABLET PO SCH (09:13)
[2020-02-23] MEDS: Magnesium Oxide 400 MG TABLET PO SCH (09:13)
[2020-02-23 10:42] LABS: Magnesium 1.1 mg/dL (1.6-2.6)
[2020-02-23 13:12] LABS: Folate 19.6 ng/mL (3.0-16.0)
[2020-02-23 14:49] VITALS: BP 159/89
== END 2020-02-23 15:25 | disposition home health service (06) | DRG 426 ==
LOC: ICNU 11:36 → EMEROOARM 11:36 → ICNU 17:27 → 3ANU 02-22 17:05
PROVIDERS: ADMIT Family Medicine; ATTEND Internal Medicine

== ENCOUNTER 2020-06-05 22:43 | Inpatient (IN) ==
[2020-06-05] MEDS ORDERED: 0.9 % Sodium Chloride 1,000 ML IVC ONE (23:17)
[2020-06-05] MEDS ORDERED: Isovue-370 500 ML BOTTLE IVP ONE (23:19)
[2020-06-05] MEDS ORDERED: Tdap (Boostrix) Vaccine 0.5 ML SYRINGE IM ONE (23:20)
[2020-06-05] MEDS ORDERED: ceFAZolin 1,000 MG in 0.9 % Sodium Chloride Mini Bag 100 ML IVPB ONE (23:53)
[2020-06-05] MEDS ORDERED: Lidocaine -MPF 1% 2 ML VIAL INFILT ONE (23:56)
[2020-06-05 23:57] LABS: Basophils % 0.1 %; Hematocrit 30.7 % (37.5-50.1); Hemoglobin 10.7 g/dL (12.9-16.9); Immature Granulocytes % 0.6 % (0-4); Lymphocytes # 0.5 K/mcL (0.6-4.6); Lymphocytes % 5.5 %; Mean Corpuscular HGB Conc 34.9 g/dL (31.6-35.5); Mean Corpuscular Hemoglobin 38.4 pg (28.0-33.3); Mean Platelet Volume 11.9 fL (9.4-12.4); Monocytes # 0.7 K/mcL (0.0-1.3); Monocytes % 7.9 %; Neutrophils # 7.8 K/mcL (1.6-8.9); Nucleated Red Blood Cells 0.6 /100 WBC (0); Platelet Count 212 K/mcL (140-400); Red Blood Count 2.79 M/mcL (4.19-5.50); Red Cell Distribution Width 18.1 % (11.5-14.5); Segmented Neutrophils % 85.9 %; White Blood Count 9.1 K/mcL (4.3-11.1)
[2020-06-06 00:05] LABS: INR 1.2; Prothrombin Time 13.9 Seconds (9.4-12.1)
[2020-06-06 00:07] LABS: Activated Partial Thrombo Time 24.4 Seconds (26.0-36.0)
[2020-06-06] MEDS ORDERED: Piperacillin/Tazobactam 3.375 GM in 0.9 % Sodium Chloride Mini Bag 100 ML IVPB ONE (00:39)
[2020-06-06 00:41] LABS: Troponin I 0.03 ng/mL (< 0.04)
[2020-06-06] MEDS ORDERED: Vancomycin 1,500 MG/265 ML IV.SOLN IVPB ONE (00:45)
[2020-06-06 00:46] LABS: Acetaminophen < 10 mcg/mL (10-20); Alanine Aminotransferase 53 Units/L (7-52); Albumin 3.1 g/dL (3.5-5.7); Albumin/Globulin Ratio 0.8 (1.1-2.2); Alkaline Phosphatase 415 Units/L (34-104); Aspartate Amino Transferase 192 Units/L (13-39); BUN/Creatinine Ratio 25 (6-26); Bilirubin,Total 6.5 mg/dL (0.3-1.0); Blood Urea Nitrogen 27 mg/dL (6-20); Calcium 8.6 mg/dL (8.6-10.3); Carbon Dioxide 9 mEq/L (23-29); Chloride 83 mEq/L (98-107); Ethanol < 10 mg/dL (Less than 10); Globulin 3.8 g/dL (2.4-3.5); Glucose 51 mg/dL (70-105); Osmolality,Calculated 266 (280-300); Sodium 127 mEq/L (136-145); Total Protein 6.9 g/dL (6.4-8.9); eGFR For African Americans > 60 (> 60); eGFR For Non-African Americans > 60 (> 60)
[2020-06-06] MEDS ORDERED: Thiamine (B-1) 100 MG in 0.9 % Sodium Chloride 50 ML IVPB STA (00:51)
[2020-06-06] MEDS ORDERED: Folic Acid 1 MG TABLET PO STA (00:51)
[2020-06-06] MEDS ORDERED: 0.9 % Sodium Chloride 1,000 ML IVC ONE (00:54)
[2020-06-06 00:56] LABS: Potassium 4.2 mEq/L (3.5-5.1)
[2020-06-06 01:15] LABS: VBG HCO3 11 mEq/L (21-27); VBG PCO2 19 mmHg (41-51); VBG PH 7.39 pH Units (7.32-7.42); VBG PO2 161 mmHg (25-50)
[2020-06-06 04:40] LABS: Bilirubin,Direct 3.1 mg/dL (0.0-0.2); Bilirubin,Indirect 1.8 mg/dL (0.0-1.0); Bilirubin,Total 4.9 mg/dL (0.3-1.0)
[2020-06-06] MEDS: D5% in 0.9% NACL 1,000 ML IVC SCH ×3 (05:02→21:22)
[2020-06-06] MEDS ORDERED: Ondansetron 4 MG/2 ML VIAL IVP PRN (06:08)
[2020-06-06] MEDS ORDERED: Naloxone 0.4 MG/ML INJ IVP PRN (06:08)
[2020-06-06] MEDS: Ringers Solution, Lactated 500 ML IVC SCH ×2 (06:16→09:26)
[2020-06-06] MEDS ORDERED: Ringers Solution, Lactated 1,000 ML IVC SCH (06:45)
[2020-06-06] MEDS ORDERED: *HR* LORazepam 2 MG/ML VIAL IVP PRN ×2 (07:00)
[2020-06-06 09:59] LABS: Hematocrit 22.9 % (37.5-50.1); Mean Corpuscular HGB Conc 35.4 g/dL (31.6-35.5); Mean Corpuscular Hemoglobin 37.5 pg (28.0-33.3); Platelet Count 143 K/mcL (140-400); Red Blood Count 2.16 M/mcL (4.19-5.50); Red Cell Distribution Width 17.7 % (11.5-14.5); White Blood Count 5.1 K/mcL (4.3-11.1)
[2020-06-06 10:01] LABS: Hemoglobin 8.1 g/dL (12.9-16.9)
[2020-06-06 10:18] LABS: Alanine Aminotransferase 37 Units/L (7-52); Albumin 2.5 g/dL (3.5-5.7); Alkaline Phosphatase 272 Units/L (34-104); Aspartate Amino Transferase 137 Units/L (13-39); BUN/Creatinine Ratio 30 (6-26); Bilirubin,Total 5.1 mg/dL (0.3-1.0); Blood Urea Nitrogen 33 mg/dL (6-20); Calcium 7.3 mg/dL (8.6-10.3); Carbon Dioxide 20 mEq/L (23-29); Chloride 90 mEq/L (98-107); Globulin 2.6 g/dL (2.4-3.5); Glucose 131 mg/dL (70-105); Magnesium 1.4 mg/dL (1.6-2.6); Osmolality,Calculated 271 (280-300); Phosphorous 3.5 mg/dL (2.7-4.5); Potassium 3.8 mEq/L (3.5-5.1); Sodium 126 mEq/L (136-145); Total Protein 5.1 g/dL (6.4-8.9); eGFR For African Americans > 60 (> 60); eGFR For Non-African Americans > 60 (> 60)
[2020-06-06 10:19] LABS: % Iron Saturation 89 % (20-55); Iron 140 mcg/dL (65-175); Transferrin 112 mg/dL (203-362)
[2020-06-06 10:48] LABS: Ferritin > 1500 ng/mL (20-250)
[2020-06-06 11:22] LABS: Folate 6.6 ng/mL (3.0-16.0)
[2020-06-06] MEDS: *HR* LORazepam 2 MG/ML VIAL IVP PRN ×2 (17:11→21:29)
[2020-06-06] MEDS ORDERED: Thiamine (B-1) 100 MG, Folic Acid 1 MG, MVI, adult with vitamin K 10 ML in 0.9 % Sodi... IVPB SCH (18:00)
[2020-06-06] MEDS: Piperacillin/Tazobactam 3.375 GM in 0.9 % Sodium Chloride Mini Bag 100 ML IVPB SCH (18:09)
[2020-06-07] MEDS: Piperacillin/Tazobactam 3.375 GM in 0.9 % Sodium Chloride Mini Bag 100 ML IVPB SCH ×3 (02:05→19:24)
[2020-06-07] MEDS: *HR* LORazepam 2 MG/ML VIAL IVP PRN ×3 (02:07→19:59)
[2020-06-07 06:48] LABS: Basophils % 0.1 %; Eosinophils # 0.1 K/mcL (0.0-0.6); Eosinophils % 0.7 %; Hematocrit 20.1 % (37.5-50.1); Hemoglobin 7.2 g/dL (12.9-16.9); Immature Granulocytes % 0.4 % (0-4); Lymphocytes # 0.5 K/mcL (0.6-4.6); Lymphocytes % 6.9 %; Mean Corpuscular HGB Conc 35.8 g/dL (31.6-35.5); Mean Corpuscular Hemoglobin 38.5 pg (28.0-33.3); Mean Corpuscular Volume 107.5 fL (83.0-100.0); Mean Platelet Volume 10.8 fL (9.4-12.4); Monocytes # 0.4 K/mcL (0.0-1.3); Monocytes % 5.5 %; Platelet Count 153 K/mcL (140-400); Red Blood Count 1.87 M/mcL (4.19-5.50); Red Cell Distribution Width 17.6 % (11.5-14.5); Segmented Neutrophils % 86.4 %; White Blood Count 6.9 K/mcL (4.3-11.1)
[2020-06-07 06:53] LABS: INR 1.2; Prothrombin Time 13.9 Seconds (9.4-12.1)
[2020-06-07 06:55] LABS: VBG Ionized Calcium 1.02 mmol/L (1.15-1.35)
[2020-06-07 06:56] LABS: Activated Partial Thrombo Time 24.2 Seconds (26.0-36.0)
[2020-06-07 07:13] LABS: Alanine Aminotransferase 27 Units/L (7-52); Albumin 2.3 g/dL (3.5-5.7); Alkaline Phosphatase 219 Units/L (34-104); Amylase 74 Units/L (29-103); Aspartate Amino Transferase 111 Units/L (13-39); BUN/Creatinine Ratio 41 (6-26); Bilirubin,Direct 1.5 mg/dL (0.0-0.2); Bilirubin,Total 2.5 mg/dL (0.3-1.0); Blood Urea Nitrogen 31 mg/dL (6-20); Calcium 7.4 mg/dL (8.6-10.3); Carbon Dioxide 23 mEq/L (23-29); Chloride 102 mEq/L (98-107); Globulin 2.3 g/dL (2.4-3.5); Glucose 100 mg/dL (70-105); Lipase 502 Units/L (11-82); Magnesium 1.4 mg/dL (1.6-2.6); Osmolality,Calculated 283 (280-300); Sodium 133 mEq/L (136-145); Total Protein 4.6 g/dL (6.4-8.9); eGFR For African Americans > 60 (> 60); eGFR For Non-African Americans > 60 (> 60)
[2020-06-07] MEDS ORDERED: Potassium Phosphate 44 MEQ in 0.9 % Sodium Chloride 250 ML IVPB ONE ×3 (07:55→10:26)
[2020-06-07] MEDS: D5% in 0.9% NACL 1,000 ML IVC SCH (08:09)
[2020-06-07] MEDS: Calcium Gluconate 1gm/50mL 1 GM/50 ML BAG IVPB SCH ×2 (08:23→08:35)
[2020-06-07] MEDS ORDERED: Potassium Chloride 40 MEQ in D5% in 0.9% NACL 1,000 ML IVC SCH (09:30)
[2020-06-07 15:00] LABS: VBG Ionized Calcium 1.12 mmol/L (1.15-1.35)
[2020-06-07 15:18] LABS: BUN/Creatinine Ratio 41 (6-26); Blood Urea Nitrogen 24 mg/dL (6-20); Calcium 7.6 mg/dL (8.6-10.3); Carbon Dioxide 22 mEq/L (23-29); Chloride 103 mEq/L (98-107); Glucose 99 mg/dL (70-105); Osmolality,Calculated 284 (280-300); Potassium 3.6 mEq/L (3.5-5.1); Sodium 135 mEq/L (136-145); eGFR For African Americans > 60 (> 60); eGFR For Non-African Americans > 60 (> 60)
[2020-06-07] MEDS ORDERED: *HR* LORazepam 2 MG/ML VIAL IVP PRN ×2 (16:13)
[2020-06-07] MEDS ORDERED: Ondansetron 4 MG/2 ML VIAL IVP PRN (16:13)
[2020-06-07] MEDS ORDERED: Naloxone 0.4 MG/ML INJ IVP PRN (16:13)
[2020-06-07] MEDS: THIAMINE IVPB SCH (20:00)
[2020-06-07] MEDS: SODIUM CHLORIDE 0.9% IVPB SCH (20:00)
[2020-06-07] MEDS: FOLIC ACID IVPB SCH (20:00)
[2020-06-08] MEDS: Potassium Chloride 40 MEQ in D5% in 0.9% NACL 1,000 ML IVC SCH ×3 (00:49→13:54)
[2020-06-08] MEDS: *HR* LORazepam 2 MG/ML VIAL IVP PRN (01:02)
[2020-06-08 02:53] LABS: Basophils % 0.1 %; Eosinophils # 0.1 K/mcL (0.0-0.6); Hematocrit 20.6 % (37.5-50.1); Hemoglobin 7.1 g/dL (12.9-16.9); Immature Granulocytes % 0.6 % (0-4); Lymphocytes # 0.6 K/mcL (0.6-4.6); Lymphocytes % 7.9 %; Mean Corpuscular HGB Conc 34.5 g/dL (31.6-35.5); Mean Corpuscular Hemoglobin 37.4 pg (28.0-33.3); Mean Corpuscular Volume 108.4 fL (83.0-100.0); Mean Platelet Volume 10.4 fL (9.4-12.4); Monocytes # 0.7 K/mcL (0.0-1.3); Monocytes % 8.5 %; Neutrophils # 6.3 K/mcL (1.6-8.9); Platelet Count 170 K/mcL (140-400); Red Cell Distribution Width 18.3 % (11.5-14.5); Segmented Neutrophils % 81.9 %; White Blood Count 7.7 K/mcL (4.3-11.1)
[2020-06-08] MEDS: Piperacillin/Tazobactam 3.375 GM in 0.9 % Sodium Chloride Mini Bag 100 ML IVPB SCH ×2 (02:55→10:41)
[2020-06-08 02:57] LABS: VBG Ionized Calcium 1.09 mmol/L (1.15-1.35)
[2020-06-08 03:01] LABS: INR 1.2; Prothrombin Time 13.5 Seconds (9.4-12.1)
[2020-06-08 03:03] LABS: Activated Partial Thrombo Time 24.3 Seconds (26.0-36.0)
[2020-06-08 03:16] LABS: Alanine Aminotransferase 61 Units/L (7-52); Albumin 2.4 g/dL (3.5-5.7); Albumin/Globulin Ratio 0.9 (1.1-2.2); Alkaline Phosphatase 307 Units/L (34-104); Aspartate Amino Transferase 283 Units/L (13-39); BUN/Creatinine Ratio 36 (6-26); Bilirubin,Direct 1.4 mg/dL (0.0-0.2); Bilirubin,Indirect 1.2 mg/dL (0.0-1.0); Bilirubin,Total 2.6 mg/dL (0.3-1.0); Blood Urea Nitrogen 18 mg/dL (6-20); Calcium 7.7 mg/dL (8.6-10.3); Carbon Dioxide 22 mEq/L (23-29); Chloride 106 mEq/L (98-107); Globulin 2.7 g/dL (2.4-3.5); Glucose 90 mg/dL (70-105); Magnesium 1.5 mg/dL (1.6-2.6); Osmolality,Calculated 285 (280-300); Potassium 3.4 mEq/L (3.5-5.1); Sodium 137 mEq/L (136-145); Total Protein 5.1 g/dL (6.4-8.9); eGFR For African Americans > 60 (> 60); eGFR For Non-African Americans > 60 (> 60)
[2020-06-08] MEDS ORDERED: Potassium Phosphate 44 MEQ in 0.9 % Sodium Chloride 250 ML IVPB ONE (10:17)
[2020-06-08] MEDS: SODIUM CHLORIDE 0.9% IVPB SCH (18:11)
[2020-06-08] MEDS: THIAMINE IVPB SCH (18:11)
[2020-06-08] MEDS: FOLIC ACID IVPB SCH (18:11)
[2020-06-09] MEDS: Potassium Chloride 40 MEQ in D5% in 0.9% NACL 1,000 ML IVC SCH ×2 (03:45→17:38)
[2020-06-09 04:18] LABS: Hematocrit 20.9 % (37.5-50.1); Hemoglobin 7.1 g/dL (12.9-16.9); Mean Corpuscular Hemoglobin 37.4 pg (28.0-33.3); Mean Platelet Volume 10.8 fL (9.4-12.4); Platelet Count 191 K/mcL (140-400); Red Cell Distribution Width 19.1 % (11.5-14.5); White Blood Count 10.4 K/mcL (4.3-11.1)
[2020-06-09 04:38] LABS: BUN/Creatinine Ratio 20 (6-26); Blood Urea Nitrogen 8 mg/dL (6-20); Calcium 7.7 mg/dL (8.6-10.3); Carbon Dioxide 21 mEq/L (23-29); Chloride 107 mEq/L (98-107); Glucose 90 mg/dL (70-105); Magnesium 2.2 mg/dL (1.6-2.6); Osmolality,Calculated 280 (280-300); Phosphorous 2.4 mg/dL (2.7-4.5); Potassium 4.6 mEq/L (3.5-5.1); Sodium 136 mEq/L (136-145); eGFR For African Americans > 60 (> 60); eGFR For Non-African Americans > 60 (> 60)
[2020-06-09] MEDS: Thiamine (B-1) 100 MG TABLET PO SCH (08:10)
[2020-06-09 11:35] LABS: Albumin 2.5 g/dL (3.5-5.7); Albumin/Globulin Ratio 0.9 (1.1-2.2); Bilirubin,Direct 1.5 mg/dL (0.0-0.2); Bilirubin,Indirect 0.9 mg/dL (0.0-1.0); Bilirubin,Total 2.4 mg/dL (0.3-1.0); Globulin 2.8 g/dL (2.4-3.5); Total Protein 5.3 g/dL (6.4-8.9)
[2020-06-09] MEDS: *HR* OxyCODONE Immed Rel 5 MG TABLET PO PRN (20:55)
[2020-06-09 23:59] LABS: Adenovirus F 40/41 PCR Not detected (Not detect); Astrovirus PCR Not detected (Not detect); C.difficile Toxin A/B Gene PCR Not detected (Not detect); Campylobacter by PCR DETECTED (Not detect); Cryptosporidium by PCR Not detected (Not detect); Cyclospora cayetanensis PCR Not detected (Not detect); E. coli O157 by PCR Not detected (Not detect); Entamoeba histolytica PCR Not detected (Not detect); Enteroaggregative E.coli(EAEC) Not detected (Not detect); Enteropathogenic E.coli(EPEC) Not detected (Not detect); Enterotoxigenic E.coli (ETEC) Not detected (Not detect); Giardia lamblia PCR Not detected (Not detect); Norovirus GI/GII PCR Not detected (Not detect); Plesiomonas shigelloides PCR Not detected (Not detect); Rotavirus A PCR Not detected (Not detect); Salmonella PCR Not detected (Not detect); Sapovirus PCR Not detected (Not detect); Shig/EnteroinvasiveE coli EIEC Not detected (Not detect); Shigalike tox-prod E coli STEC Not detected (Not detect); Vibrio PCR Not detected (Not detect); Vibrio cholerae PCR Not detected (Not detect); Yersinia enterocolitica PCR Not detected (Not detect)
[2020-06-10 05:00] LABS: Hemoglobin 7.5 g/dL (12.9-16.9); Mean Corpuscular HGB Conc 32.6 g/dL (31.6-35.5); Mean Corpuscular Hemoglobin 36.4 pg (28.0-33.3); Mean Corpuscular Volume 111.7 fL (83.0-100.0); Mean Platelet Volume 10.8 fL (9.4-12.4); Platelet Count 262 K/mcL (140-400); Red Blood Count 2.06 M/mcL (4.19-5.50); Red Cell Distribution Width 19.1 % (11.5-14.5); White Blood Count 13.3 K/mcL (4.3-11.1)
[2020-06-10 05:19] LABS: BUN/Creatinine Ratio 15 (6-26); Blood Urea Nitrogen 6 mg/dL (6-20); Calcium 7.3 mg/dL (8.6-10.3); Carbon Dioxide 19 mEq/L (23-29); Chloride 107 mEq/L (98-107); Glucose 99 mg/dL (70-105); Osmolality,Calculated 274 (280-300); Potassium 4.1 mEq/L (3.5-5.1); Sodium 133 mEq/L (136-145); eGFR For African Americans > 60 (> 60); eGFR For Non-African Americans > 60 (> 60)
[2020-06-10] MEDS: Potassium Chloride 40 MEQ in D5% in 0.9% NACL 1,000 ML IVC SCH ×3 (05:56→20:01)
[2020-06-10] MEDS ORDERED: Ipratropium/Albuterol Neb 3 ML IH PRN (05:56)
[2020-06-10] MEDS ORDERED: Isovue-370 500 ML BOTTLE IVP ONE (06:42)
[2020-06-10] MEDS: Thiamine (B-1) 100 MG TABLET PO SCH (08:10)
[2020-06-10] MEDS: Azithromycin 250 MG TABLET PO SCH (08:10)
[2020-06-11] MEDS: *HR* OxyCODONE Immed Rel 5 MG TABLET PO PRN ×2 (04:13→21:39)
[2020-06-11 04:54] LABS: Basophils % 0.2 %; Eosinophils # 0.1 K/mcL (0.0-0.6); Eosinophils % 0.9 %; Hematocrit 20.5 % (37.5-50.1); Hemoglobin 6.8 g/dL (12.9-16.9); Immature Granulocytes % 2.4 % (0-4); Lymphocytes # 0.9 K/mcL (0.6-4.6); Lymphocytes % 6.1 %; Mean Corpuscular HGB Conc 33.2 g/dL (31.6-35.5); Mean Corpuscular Hemoglobin 36.8 pg (28.0-33.3); Mean Corpuscular Volume 110.8 fL (83.0-100.0); Mean Platelet Volume 10.8 fL (9.4-12.4); Monocytes # 1.9 K/mcL (0.0-1.3); Monocytes % 12.9 %; Neutrophils # 11.4 K/mcL (1.6-8.9); Nucleated Red Blood Cells 0.2 /100 WBC (0); Platelet Count 315 K/mcL (140-400); Red Blood Count 1.85 M/mcL (4.19-5.50); Red Cell Distribution Width 18.5 % (11.5-14.5); Segmented Neutrophils % 77.5 %; White Blood Count 14.7 K/mcL (4.3-11.1)
[2020-06-11 05:12] LABS: BUN/Creatinine Ratio 15 (6-26); Blood Urea Nitrogen 6 mg/dL (6-20); Calcium 7.1 mg/dL (8.6-10.3); Carbon Dioxide 15 mEq/L (23-29); Chloride 108 mEq/L (98-107); Glucose 78 mg/dL (70-105); Osmolality,Calculated 266 (280-300); Potassium 3.9 mEq/L (3.5-5.1); Sodium 130 mEq/L (136-145); eGFR For African Americans > 60 (> 60); eGFR For Non-African Americans > 60 (> 60)
[2020-06-11 05:13] LABS: Anisocytosis 1+ (Not Present); Macrocytosis Present (Not Present); Platelet Estimate Normal (Normal)
[2020-06-11] MEDS ORDERED: 0.9 % Sodium Chloride 250 ML IVC SCH (08:15)
[2020-06-11] MEDS ORDERED: Potassium Chloride 40 MEQ in D5% in 0.9% NACL 1,000 ML IVC SCH (09:30)
[2020-06-11] MEDS ORDERED: 0.9 % Sodium Chloride 250 ML ONE (10:33)
[2020-06-11] MEDS: Azithromycin 250 MG TABLET PO SCH (10:41)
[2020-06-11] MEDS: Thiamine (B-1) 100 MG TABLET PO SCH (10:42)
[2020-06-11 23:47] LABS: Bilirubin,Urine Negative (Negative); Blood,Urine Negative (Negative); Clarity,Urine Clear (Clear); Color,Urine Yellow (Yellow); Glucose,Urine (UA) Normal (Normal); Ketones,Urine Negative (Negative); Leukocyte Esterase,Urine Negative (Negative); Nitrite,Urine Negative (Negative); PH,Urine 5.5 pH Units (5.0-8.0); Protein,Urine Trace mg/dL (Neg-Trace); Specific Gravity,Urine 1.015 (1.010-1.025); Urobilinogen,Urine Normal (Normal)
[2020-06-12 01:00] LABS: Amphetamine Screen,Urine Negative ng/mL (Cutoff=1000); Barbiturate Screen,Urine Negative ng/mL (Cutoff=200); Benzodiazepines Screen,Urine Negative ng/mL (Cutoff=200); Cannabinoid Screen,Urine Negative ng/mL (Cutoff = 50); Cocaine Screen,Urine Negative ng/mL (Cutoff= 300); Opiate Screen,Urine Negative ng/mL (Cutoff=300); Phencyclidine Screen,Urine Negative ng/mL (Cutoff=25)
[2020-06-12 02:55] LABS: Basophils % 0.2 %; Eosinophils # 0.1 K/mcL (0.0-0.6); Eosinophils % 0.9 %; Hematocrit 26.1 % (37.5-50.1); Hemoglobin 8.6 g/dL (12.9-16.9); Immature Granulocytes % 3.4 % (0-4); Lymphocytes # 1.1 K/mcL (0.6-4.6); Lymphocytes % 7.3 %; Mean Corpuscular Hemoglobin 34.5 pg (28.0-33.3); Mean Corpuscular Volume 104.8 fL (83.0-100.0); Mean Platelet Volume 10.7 fL (9.4-12.4); Monocytes # 1.7 K/mcL (0.0-1.3); Neutrophils # 10.9 K/mcL (1.6-8.9); Platelet Count 394 K/mcL (140-400); Red Blood Count 2.49 M/mcL (4.19-5.50); Red Cell Distribution Width 21.1 % (11.5-14.5); Segmented Neutrophils % 76.2 %; White Blood Count 14.3 K/mcL (4.3-11.1)
[2020-06-12 03:14] LABS: BUN/Creatinine Ratio 10 (6-26); Blood Urea Nitrogen 5 mg/dL (6-20); Calcium 7.3 mg/dL (8.6-10.3); Carbon Dioxide 18 mEq/L (23-29); Chloride 104 mEq/L (98-107); Glucose 67 mg/dL (70-105); Osmolality,Calculated 266 (280-300); Potassium 3.5 mEq/L (3.5-5.1); Sodium 130 mEq/L (136-145); eGFR For African Americans > 60 (> 60); eGFR For Non-African Americans > 60 (> 60)
[2020-06-12] MEDS: Folic Acid 1 MG TABLET PO SCH (09:31)
[2020-06-12] MEDS: Azithromycin 250 MG TABLET PO SCH (09:31)
[2020-06-12] MEDS: Multivit/Ca/Min/Fe/FA 1 TAB TABLET PO SCH (09:31)
[2020-06-12] MEDS: Thiamine (B-1) 100 MG TABLET PO SCH (09:31)
[2020-06-12] MEDS: *HR* OxyCODONE Immed Rel 5 MG TABLET PO PRN (20:10)
[2020-06-13 01:05] LABS: Basophils # 0.1 K/mcL (0.0-0.2); Basophils % 0.3 %; Eosinophils # 0.2 K/mcL (0.0-0.6); Hematocrit 25.3 % (37.5-50.1); Hemoglobin 8.6 g/dL (12.9-16.9); Immature Granulocytes % 2.7 % (0-4); Lymphocytes # 1.5 K/mcL (0.6-4.6); Mean Corpuscular Volume 102.8 fL (83.0-100.0); Mean Platelet Volume 10.6 fL (9.4-12.4); Monocytes # 1.8 K/mcL (0.0-1.3); Monocytes % 10.9 %; Neutrophils # 12.4 K/mcL (1.6-8.9); Platelet Count 483 K/mcL (140-400); Red Blood Count 2.46 M/mcL (4.19-5.50); Red Cell Distribution Width 20.3 % (11.5-14.5); Segmented Neutrophils % 76.1 %; White Blood Count 16.3 K/mcL (4.3-11.1)
[2020-06-13 01:29] LABS: Alanine Aminotransferase 56 Units/L (7-52); Albumin 2.3 g/dL (3.5-5.7); Albumin/Globulin Ratio 0.8 (1.1-2.2); Alkaline Phosphatase 368 Units/L (34-104); Aspartate Amino Transferase 113 Units/L (13-39); BUN/Creatinine Ratio 13 (6-26); Bilirubin,Total 1.8 mg/dL (0.3-1.0); Blood Urea Nitrogen 7 mg/dL (6-20); Calcium 7.2 mg/dL (8.6-10.3); Carbon Dioxide 17 mEq/L (23-29); Chloride 103 mEq/L (98-107); Globulin 2.8 g/dL (2.4-3.5); Glucose 80 mg/dL (70-105); Osmolality,Calculated 263 (280-300); Potassium 3.3 mEq/L (3.5-5.1); Sodium 128 mEq/L (136-145); Total Protein 5.1 g/dL (6.4-8.9); eGFR For African Americans > 60 (> 60); eGFR For Non-African Americans > 60 (> 60)
[2020-06-13] MEDS: Folic Acid 1 MG TABLET PO SCH (07:56)
[2020-06-13] MEDS: Thiamine (B-1) 100 MG TABLET PO SCH (07:56)
[2020-06-13] MEDS: Azithromycin 250 MG TABLET PO SCH (07:56)
[2020-06-13] MEDS: Multivit/Ca/Min/Fe/FA 1 TAB TABLET PO SCH (07:57)
[2020-06-13] MEDS: *HR* OxyCODONE Immed Rel 5 MG TABLET PO PRN (13:45)
[2020-06-13] MEDS: Piperacillin/Tazobactam 3.375 GM in 0.9 % Sodium Chloride Mini Bag 100 ML IVPB SCH (15:34)
[2020-06-13] MEDS ORDERED: *HR* LORazepam 2 MG/ML VIAL IM STA (19:27)
[2020-06-13] MEDS ORDERED: *HR* LORazepam 2 MG/ML VIAL IVP STA (19:33)
[2020-06-14] MEDS: Piperacillin/Tazobactam 3.375 GM in 0.9 % Sodium Chloride Mini Bag 100 ML IVPB SCH ×4 (00:36→22:48)
[2020-06-14] MEDS ORDERED: *HR* LORazepam 2 MG/ML VIAL IVP ONE (03:12)
[2020-06-14] MEDS ORDERED: Isovue-300 50ML VIAL ONE (07:18)
[2020-06-14] MEDS ORDERED: *HR* Midazolam HCl 2 MG/2 ML VIAL ONE (07:19)
[2020-06-14] MEDS ORDERED: *HR* Propofol 200 MG/20 ML VIAL IVP ONE (07:19)
[2020-06-14] MEDS ORDERED: *HR* FentaNYL (PF) 100 MCG/2 ML VIAL ONE (07:19)
[2020-06-14] MEDS ORDERED: Ondansetron 4 MG/2 ML VIAL ONE (07:20)
[2020-06-14] MEDS ORDERED: Lidocaine HCL 4 ML Topical Solution (Laryng-O-Jet Kit Sterile Pak) TP ONE (07:20)
[2020-06-14] MEDS ORDERED: Dexamethasone 4 MG/ML VIAL ONE (07:20)
[2020-06-14] MEDS ORDERED: Lidocaine -MPF 2% 2 ML VIAL ONE (07:20)
[2020-06-14] MEDS ORDERED: *HR* Rocuronium Bromide 50 MG/5 ML VIAL ONE (07:20)
[2020-06-14] MEDS: Thiamine (B-1) 100 MG TABLET PO SCH (07:38)
[2020-06-14] MEDS: Multivit/Ca/Min/Fe/FA 1 TAB TABLET PO SCH (07:38)
[2020-06-14] MEDS: Folic Acid 1 MG TABLET PO SCH (07:38)
[2020-06-14] MEDS ORDERED: *HR* LORazepam 2 MG/ML VIAL IVP PRN (08:00)
[2020-06-14 08:40] LABS: Adenovirus Not Detected (Not Detect); Bordetella Pertussis Not Detected (Not Detect); Chlamydophila pneumoniae Not Detected (Not Detect); Coronavirus 229E Not Detected (Not Detect); Coronavirus HKU1 Not Detected (Not Detect); Coronavirus NL63 Not Detected (Not Detect); Coronavirus OC43 Not Detected (Not Detect); Human Metapneumovirus Not Detected (Not Detect); Human Rhinovirus/Enterovirus Not Detected (Not Detect); Influenza A Subtype 2009 H1 Not Detected (Not Detect); Influenza B Not Detected (Not Detect); Mycoplasma pneumoniae Not Detected (Not Detect); Parainfluenza Virus 1 Not Detected (Not Detect); Parainfluenza Virus 2 Not Detected (Not Detect); Parainfluenza Virus 3 Not Detected (Not Detect); Parainfluenza Virus 4 Not Detected (Not Detect); Respiratory Syncytial Virus Not Detected (Not Detect); SARS-CoV-2 Not Detected (Not Detect)
[2020-06-14 09:00] LABS: Hematocrit 23.6 % (37.5-50.1); Mean Corpuscular HGB Conc 33.9 g/dL (31.6-35.5); Mean Corpuscular Hemoglobin 34.8 pg (28.0-33.3); Mean Corpuscular Volume 102.6 fL (83.0-100.0); Mean Platelet Volume 10.2 fL (9.4-12.4); Platelet Count 601 K/mcL (140-400); Red Cell Distribution Width 19.2 % (11.5-14.5); White Blood Count 16.2 K/mcL (4.3-11.1)
[2020-06-14 09:24] LABS: BUN/Creatinine Ratio 10 (6-26); Blood Urea Nitrogen 5 mg/dL (6-20); Calcium 7.4 mg/dL (8.6-10.3); Carbon Dioxide 17 mEq/L (23-29); Chloride 106 mEq/L (98-107); Glucose 67 mg/dL (70-105); Osmolality,Calculated 268 (280-300); Potassium 3.2 mEq/L (3.5-5.1); Sodium 131 mEq/L (136-145); eGFR For African Americans > 60 (> 60); eGFR For Non-African Americans > 60 (> 60)
[2020-06-14 09:31] LABS: Lymphocytes # 1.9 K/mcL (0.6-4.6); Neutrophils # 12.6 K/mcL (1.6-8.9)
[2020-06-14 09:32] LABS: Anisocytosis 2+ (Not Present); Hypochromasia Present (Not Present); Macrocytosis Present (Not Present); Microcytosis Present (Not Present); Toxic Granulation Present (Not Present)
[2020-06-14] MEDS: *HR* OxyCODONE Immed Rel 5 MG TABLET PO PRN ×2 (11:36→22:48)
[2020-06-14] MEDS: *HR* LORazepam 2 MG/ML VIAL IVP PRN (13:13)
[2020-06-14] MEDS: haloperidoL 1 MG TABLET PO SCH ×2 (14:25→22:48)
[2020-06-14] MEDS ORDERED: QUEtiapine Fumarate 25 MG TABLET PO SCH (21:00)
[2020-06-15 01:12] LABS: Basophils # 0.1 K/mcL (0.0-0.2); Basophils % 0.8 %; Eosinophils # 0.2 K/mcL (0.0-0.6); Eosinophils % 1.3 %; Hematocrit 25.9 % (37.5-50.1); Hemoglobin 8.5 g/dL (12.9-16.9); Immature Granulocytes % 0.9 % (0-4); Lymphocytes # 1.1 K/mcL (0.6-4.6); Lymphocytes % 7.7 %; Mean Corpuscular HGB Conc 32.8 g/dL (31.6-35.5); Mean Corpuscular Hemoglobin 34.3 pg (28.0-33.3); Mean Corpuscular Volume 104.4 fL (83.0-100.0); Monocytes % 7.3 %; Neutrophils # 11.7 K/mcL (1.6-8.9); Platelet Count 676 K/mcL (140-400); Red Blood Count 2.48 M/mcL (4.19-5.50); White Blood Count 14.3 K/mcL (4.3-11.1)
[2020-06-15 01:49] LABS: BUN/Creatinine Ratio 8 (6-26); Blood Urea Nitrogen 5 mg/dL (6-20); Calcium 7.4 mg/dL (8.6-10.3); Carbon Dioxide 18 mEq/L (23-29); Chloride 105 mEq/L (98-107); Glucose 88 mg/dL (70-105); Osmolality,Calculated 271 (280-300); Sodium 132 mEq/L (136-145); eGFR For African Americans > 60 (> 60); eGFR For Non-African Americans > 60 (> 60)
[2020-06-15] MEDS: haloperidoL 1 MG TABLET PO SCH ×2 (08:57→20:24)
[2020-06-15] MEDS: Folic Acid 1 MG TABLET PO SCH (08:57)
[2020-06-15] MEDS: Thiamine (B-1) 100 MG TABLET PO SCH (08:57)
[2020-06-15] MEDS: Multivit/Ca/Min/Fe/FA 1 TAB TABLET PO SCH (08:57)
[2020-06-15] MEDS: Piperacillin/Tazobactam 3.375 GM in 0.9 % Sodium Chloride Mini Bag 100 ML IVPB SCH ×2 (08:58→16:29)
[2020-06-15] MEDS: *HR* OxyCODONE Immed Rel 5 MG TABLET PO PRN (09:24)
[2020-06-16] MEDS: Piperacillin/Tazobactam 3.375 GM in 0.9 % Sodium Chloride Mini Bag 100 ML IVPB SCH ×2 (00:32→07:40)
[2020-06-16] MEDS: *HR* OxyCODONE Immed Rel 5 MG TABLET PO PRN (01:06)
[2020-06-16 01:56] LABS: Basophils # 0.1 K/mcL (0.0-0.2); Basophils % 0.4 %; Eosinophils # 0.1 K/mcL (0.0-0.6); Eosinophils % 1.1 %; Hematocrit 25.4 % (37.5-50.1); Hemoglobin 8.3 g/dL (12.9-16.9); Immature Granulocytes % 0.7 % (0-4); Lymphocytes # 1.3 K/mcL (0.6-4.6); Lymphocytes % 9.9 %; Mean Corpuscular HGB Conc 32.7 g/dL (31.6-35.5); Mean Corpuscular Hemoglobin 34.7 pg (28.0-33.3); Mean Corpuscular Volume 106.3 fL (83.0-100.0); Mean Platelet Volume 9.6 fL (9.4-12.4); Monocytes % 7.8 %; Neutrophils # 10.7 K/mcL (1.6-8.9); Platelet Count 686 K/mcL (140-400); Red Blood Count 2.39 M/mcL (4.19-5.50); Red Cell Distribution Width 18.9 % (11.5-14.5); Segmented Neutrophils % 80.1 %; White Blood Count 13.3 K/mcL (4.3-11.1)
[2020-06-16 02:22] LABS: BUN/Creatinine Ratio 8 (6-26); Blood Urea Nitrogen 5 mg/dL (6-20); Calcium 7.4 mg/dL (8.6-10.3); Carbon Dioxide 18 mEq/L (23-29); Chloride 108 mEq/L (98-107); Glucose 92 mg/dL (70-105); Osmolality,Calculated 271 (280-300); Potassium 3.8 mEq/L (3.5-5.1); Sodium 132 mEq/L (136-145); eGFR For African Americans > 60 (> 60); eGFR For Non-African Americans > 60 (> 60)
[2020-06-16] MEDS: Thiamine (B-1) 100 MG TABLET PO SCH (07:40)
[2020-06-16] MEDS: *HR* LORazepam 2 MG/ML VIAL IVP PRN (07:40)
[2020-06-16] MEDS: haloperidoL 1 MG TABLET PO SCH ×2 (07:40→20:31)
[2020-06-16] MEDS: Multivit/Ca/Min/Fe/FA 1 TAB TABLET PO SCH (07:40)
[2020-06-16] MEDS: Folic Acid 1 MG TABLET PO SCH (07:40)
[2020-06-17] MEDS: *HR* LORazepam 2 MG/ML VIAL IVP PRN ×4 (02:39→23:16)
[2020-06-17] MEDS: Multivit/Ca/Min/Fe/FA 1 TAB TABLET PO SCH (08:04)
[2020-06-17] MEDS: haloperidoL 1 MG TABLET PO SCH ×2 (08:04→20:43)
[2020-06-17] MEDS: Folic Acid 1 MG TABLET PO SCH (08:05)
[2020-06-17] MEDS: Thiamine (B-1) 100 MG TABLET PO SCH (08:05)
[2020-06-17 08:56] LABS: Basophils # 0.1 K/mcL (0.0-0.2); Basophils % 0.5 %; Eosinophils # 0.2 K/mcL (0.0-0.6); Eosinophils % 1.1 %; Hematocrit 26.4 % (37.5-50.1); Hemoglobin 8.5 g/dL (12.9-16.9); Immature Granulocytes % 0.5 % (0-4); Lymphocytes % 6.8 %; Mean Corpuscular HGB Conc 32.2 g/dL (31.6-35.5); Mean Corpuscular Hemoglobin 34.1 pg (28.0-33.3); Mean Platelet Volume 9.5 fL (9.4-12.4); Monocytes # 0.7 K/mcL (0.0-1.3); Monocytes % 4.4 %; Neutrophils # 12.9 K/mcL (1.6-8.9); Platelet Count 650 K/mcL (140-400); Red Blood Count 2.49 M/mcL (4.19-5.50); Red Cell Distribution Width 18.4 % (11.5-14.5); Segmented Neutrophils % 86.7 %; White Blood Count 14.9 K/mcL (4.3-11.1)
[2020-06-17 09:00] LABS: Alanine Aminotransferase 38 Units/L (7-52); Albumin 2.4 g/dL (3.5-5.7); Albumin/Globulin Ratio 0.7 (1.1-2.2); Alkaline Phosphatase 238 Units/L (34-104); Aspartate Amino Transferase 54 Units/L (13-39); BUN/Creatinine Ratio 12 (6-26); Bilirubin,Direct 0.5 mg/dL (0.0-0.2); Bilirubin,Indirect 0.7 mg/dL (0.0-1.0); Bilirubin,Total 1.2 mg/dL (0.3-1.0); Blood Urea Nitrogen 6 mg/dL (6-20); Calcium 7.8 mg/dL (8.6-10.3); Carbon Dioxide 21 mEq/L (23-29); Chloride 104 mEq/L (98-107); Globulin 3.4 g/dL (2.4-3.5); Glucose 109 mg/dL (70-105); Osmolality,Calculated 272 (280-300); Potassium 3.9 mEq/L (3.5-5.1); Sodium 132 mEq/L (136-145); Total Protein 5.8 g/dL (6.4-8.9); eGFR For African Americans > 60 (> 60); eGFR For Non-African Americans > 60 (> 60)
[2020-06-17] MEDS: *HR* OxyCODONE Immed Rel 5 MG TABLET PO PRN (13:58)
[2020-06-18] MEDS: *HR* LORazepam 2 MG/ML VIAL IVP PRN ×2 (00:59→06:29)
[2020-06-18 02:07] LABS: Basophils # 0.1 K/mcL (0.0-0.2); Basophils % 0.6 %; Eosinophils # 0.2 K/mcL (0.0-0.6); Eosinophils % 1.1 %; Hematocrit 27.4 % (37.5-50.1); Hemoglobin 8.7 g/dL (12.9-16.9); Immature Granulocytes % 0.5 % (0-4); Lymphocytes # 1.4 K/mcL (0.6-4.6); Lymphocytes % 9.4 %; Mean Corpuscular HGB Conc 31.8 g/dL (31.6-35.5); Mean Corpuscular Hemoglobin 33.7 pg (28.0-33.3); Mean Corpuscular Volume 106.2 fL (83.0-100.0); Mean Platelet Volume 9.5 fL (9.4-12.4); Monocytes # 1.1 K/mcL (0.0-1.3); Monocytes % 7.3 %; Neutrophils # 12.1 K/mcL (1.6-8.9); Platelet Count 651 K/mcL (140-400); Red Blood Count 2.58 M/mcL (4.19-5.50); Segmented Neutrophils % 81.1 %; White Blood Count 14.9 K/mcL (4.3-11.1)
[2020-06-18 02:27] LABS: Alanine Aminotransferase 38 Units/L (7-52); Albumin 2.5 g/dL (3.5-5.7); Albumin/Globulin Ratio 0.6 (1.1-2.2); Alkaline Phosphatase 252 Units/L (34-104); Aspartate Amino Transferase 61 Units/L (13-39); BUN/Creatinine Ratio 11 (6-26); Bilirubin,Direct 0.5 mg/dL (0.0-0.2); Bilirubin,Indirect 0.6 mg/dL (0.0-1.0); Bilirubin,Total 1.1 mg/dL (0.3-1.0); Blood Urea Nitrogen 6 mg/dL (6-20); Carbon Dioxide 22 mEq/L (23-29); Chloride 104 mEq/L (98-107); Globulin 3.9 g/dL (2.4-3.5); Glucose 83 mg/dL (70-105); Magnesium 1.4 mg/dL (1.6-2.6); Osmolality,Calculated 273 (280-300); Potassium 3.7 mEq/L (3.5-5.1); Sodium 133 mEq/L (136-145); Total Protein 6.4 g/dL (6.4-8.9); eGFR For African Americans > 60 (> 60); eGFR For Non-African Americans > 60 (> 60)
[2020-06-18 02:30] LABS: Iron 19 mcg/dL (65-175)
[2020-06-18 02:47] LABS: Ferritin 651 ng/mL (20-250)
[2020-06-18 02:54] LABS: Folate 10.8 ng/mL (3.0-16.0)
[2020-06-18 03:08] LABS: % Iron Saturation 12 % (20-55); Transferrin 112 mg/dL (203-362)
[2020-06-18] MEDS: haloperidoL 1 MG TABLET PO SCH (09:22)
[2020-06-18] MEDS: Folic Acid 1 MG TABLET PO SCH (09:23)
[2020-06-18] MEDS: Multivit/Ca/Min/Fe/FA 1 TAB TABLET PO SCH (09:23)
[2020-06-18] MEDS: Thiamine (B-1) 100 MG TABLET PO SCH (09:23)
[2020-06-18] MEDS: haloperidoL 1 MG TABLET PO PRN (18:51)
[2020-06-19 03:11] LABS: Basophils # 0.1 K/mcL (0.0-0.2); Basophils % 0.9 %; Eosinophils # 0.2 K/mcL (0.0-0.6); Eosinophils % 1.7 %; Hemoglobin 7.7 g/dL (12.9-16.9); Immature Granulocytes % 0.5 % (0-4); Lymphocytes # 1.6 K/mcL (0.6-4.6); Lymphocytes % 12.9 %; Mean Corpuscular HGB Conc 30.8 g/dL (31.6-35.5); Mean Corpuscular Hemoglobin 32.8 pg (28.0-33.3); Mean Corpuscular Volume 106.4 fL (83.0-100.0); Mean Platelet Volume 9.9 fL (9.4-12.4); Monocytes # 1.2 K/mcL (0.0-1.3); Monocytes % 9.6 %; Neutrophils # 9.4 K/mcL (1.6-8.9); Platelet Count 572 K/mcL (140-400); Red Blood Count 2.35 M/mcL (4.19-5.50); Red Cell Distribution Width 17.3 % (11.5-14.5); Segmented Neutrophils % 74.4 %; White Blood Count 12.7 K/mcL (4.3-11.1)
[2020-06-19 03:31] LABS: BUN/Creatinine Ratio 13 (6-26); Blood Urea Nitrogen 6 mg/dL (6-20); Calcium 7.8 mg/dL (8.6-10.3); Carbon Dioxide 22 mEq/L (23-29); Chloride 103 mEq/L (98-107); Glucose 89 mg/dL (70-105); Magnesium 1.8 mg/dL (1.6-2.6); Osmolality,Calculated 271 (280-300); Potassium 3.6 mEq/L (3.5-5.1); Sodium 132 mEq/L (136-145); eGFR For African Americans > 60 (> 60); eGFR For Non-African Americans > 60 (> 60)
[2020-06-19 03:34] LABS: Albumin 2.3 g/dL (3.5-5.7); Albumin/Globulin Ratio 0.7 (1.1-2.2); Bilirubin,Direct 0.5 mg/dL (0.0-0.2); Bilirubin,Indirect 0.5 mg/dL (0.0-1.0); Globulin 3.4 g/dL (2.4-3.5); Total Protein 5.7 g/dL (6.4-8.9)
[2020-06-19] MEDS: Folic Acid 1 MG TABLET PO SCH (08:21)
[2020-06-19] MEDS: Cholecalciferol (D-3) 1,000 UNIT (25MCG) TABLET PO SCH (08:21)
[2020-06-19] MEDS: Multivit/Ca/Min/Fe/FA 1 TAB TABLET PO SCH (08:21)
[2020-06-19] MEDS: Thiamine (B-1) 100 MG TABLET PO SCH (08:21)
[2020-06-19] MEDS: *HR* LORazepam 2 MG/ML VIAL IVP PRN (21:11)
[2020-06-20] MEDS: haloperidoL 1 MG TABLET PO PRN (02:51)
[2020-06-20 06:02] LABS: Basophils # 0.1 K/mcL (0.0-0.2); Basophils % 1.2 %; Eosinophils # 0.2 K/mcL (0.0-0.6); Eosinophils % 1.9 %; Hematocrit 27.9 % (37.5-50.1); Hemoglobin 8.7 g/dL (12.9-16.9); Immature Granulocytes % 0.5 % (0-4); Lymphocytes # 1.6 K/mcL (0.6-4.6); Lymphocytes % 16.1 %; Mean Corpuscular HGB Conc 31.2 g/dL (31.6-35.5); Mean Corpuscular Hemoglobin 33.2 pg (28.0-33.3); Mean Corpuscular Volume 106.5 fL (83.0-100.0); Mean Platelet Volume 9.6 fL (9.4-12.4); Monocytes % 10.1 %; Neutrophils # 6.8 K/mcL (1.6-8.9); Platelet Count 606 K/mcL (140-400); Red Blood Count 2.62 M/mcL (4.19-5.50); Red Cell Distribution Width 17.3 % (11.5-14.5); Segmented Neutrophils % 70.2 %; White Blood Count 9.7 K/mcL (4.3-11.1)
[2020-06-20 06:20] LABS: BUN/Creatinine Ratio 13 (6-26); Blood Urea Nitrogen 7 mg/dL (6-20); Calcium 8.3 mg/dL (8.6-10.3); Carbon Dioxide 25 mEq/L (23-29); Chloride 104 mEq/L (98-107); Glucose 94 mg/dL (70-105); Magnesium 1.7 mg/dL (1.6-2.6); Osmolality,Calculated 276 (280-300); Phosphorous 4.1 mg/dL (2.7-4.5); Potassium 3.9 mEq/L (3.5-5.1); Sodium 134 mEq/L (136-145); eGFR For African Americans > 60 (> 60); eGFR For Non-African Americans > 60 (> 60)
[2020-06-20] MEDS: Cholecalciferol (D-3) 1,000 UNIT (25MCG) TABLET PO SCH (09:24)
[2020-06-20] MEDS: Folic Acid 1 MG TABLET PO SCH (09:24)
[2020-06-20] MEDS: Multivit/Ca/Min/Fe/FA 1 TAB TABLET PO SCH (09:25)
[2020-06-20] MEDS: Thiamine (B-1) 100 MG TABLET PO SCH (09:25)
[2020-06-20] MEDS: *HR* OxyCODONE Immed Rel 5 MG TABLET PO PRN ×2 (11:22→17:30)
[2020-06-20] MEDS: *HR* LORazepam 2 MG/ML VIAL IVP PRN (18:00)
[2020-06-20] MEDS: Mirtazapine 15 MG TABLET PO SCH (22:18)
[2020-06-21] MEDS: *HR* LORazepam 2 MG/ML VIAL IVP PRN ×5 (01:38→23:48)
[2020-06-21] MEDS: Folic Acid 1 MG TABLET PO SCH (08:35)
[2020-06-21] MEDS: Cholecalciferol (D-3) 1,000 UNIT (25MCG) TABLET PO SCH (08:35)
[2020-06-21] MEDS: Multivit/Ca/Min/Fe/FA 1 TAB TABLET PO SCH (08:50)
[2020-06-21] MEDS: Thiamine (B-1) 100 MG TABLET PO SCH (08:58)
[2020-06-21] MEDS: Mirtazapine 15 MG TABLET PO SCH (20:20)
[2020-06-22] MEDS: *HR* LORazepam 2 MG/ML VIAL IVP PRN (00:55)
[2020-06-22] MEDS: Cholecalciferol (D-3) 1,000 UNIT (25MCG) TABLET PO SCH ×2 (07:39→10:50)
[2020-06-22] MEDS: haloperidoL 1 MG TABLET PO PRN (07:39)
[2020-06-22] MEDS: Multivit/Ca/Min/Fe/FA 1 TAB TABLET PO SCH ×2 (07:39→10:50)
[2020-06-22] MEDS: Folic Acid 1 MG TABLET PO SCH ×2 (07:39→10:50)
[2020-06-22] MEDS: Thiamine (B-1) 100 MG TABLET PO SCH ×2 (07:39→10:50)
[2020-06-22 10:58] VITALS: BP 105/71
[2020-06-22 12:31] LABS: BUN/Creatinine Ratio 14 (6-26); Blood Urea Nitrogen 7 mg/dL (6-20); Calcium 8.7 mg/dL (8.6-10.3); Carbon Dioxide 25 mEq/L (23-29); Chloride 105 mEq/L (98-107); Glucose 82 mg/dL (70-105); Magnesium 1.7 mg/dL (1.6-2.6); Osmolality,Calculated 281 (280-300); Potassium 3.7 mEq/L (3.5-5.1); Sodium 137 mEq/L (136-145); eGFR For African Americans > 60 (> 60); eGFR For Non-African Americans > 60 (> 60)
[2020-06-22 13:07] LABS: Adenovirus Not Detected (Not Detect); Bordetella Pertussis Not Detected (Not Detect); Chlamydophila pneumoniae Not Detected (Not Detect); Coronavirus 229E Not Detected (Not Detect); Coronavirus HKU1 Not Detected (Not Detect); Coronavirus NL63 Not Detected (Not Detect); Coronavirus OC43 Not Detected (Not Detect); Human Metapneumovirus Not Detected (Not Detect); Human Rhinovirus/Enterovirus Not Detected (Not Detect); Influenza A Subtype 2009 H1 Not Detected (Not Detect); Influenza B Not Detected (Not Detect); Parainfluenza Virus 1 Not Detected (Not Detect); Parainfluenza Virus 2 Not Detected (Not Detect); Parainfluenza Virus 3 Not Detected (Not Detect); Parainfluenza Virus 4 Not Detected (Not Detect); Respiratory Syncytial Virus Not Detected (Not Detect); SARS-CoV-2 Not Detected (Not Detect)
[2020-06-22 13:08] LABS: Mycoplasma pneumoniae Not Detected (Not Detect)
== END 2020-06-22 13:52 | DRG 951 ==
LOC: EMEROOARM 22:43 → SUATTDRO 06-06 08:29 → ICNU 06-06 08:29 → 2NNU 06-07 18:54 → 3ANU 06-09 22:09 → 2NNU 06-14 16:33 → 3BNU 06-18 14:47
PROVIDERS: ADMIT Internal Medicine; ATTEND Pharmacist

== ENCOUNTER 2021-09-20 15:15 | Inpatient (IN) ==
[2021-09-20 18:10] LABS: Basophils % 0.1 %; Eosinophils % 0.1 %; Hematocrit 22.8 % (37.5-50.1); Hemoglobin 7.9 g/dL (12.9-16.9); Immature Granulocytes % 1.2 % (0-4); Lymphocytes % 6.5 %; Mean Corpuscular HGB Conc 34.6 g/dL (31.6-35.5); Mean Corpuscular Hemoglobin 36.6 pg (28.0-33.3); Mean Corpuscular Volume 105.6 fL (83.0-100.0); Mean Platelet Volume 9.2 fL (9.4-12.4); Monocytes # 0.9 K/mcL (0.0-1.3); Monocytes % 6.1 %; Neutrophils # 13.1 K/mcL (1.6-8.9); Platelet Count 200 K/mcL (140-400); Red Blood Count 2.16 M/mcL (4.19-5.50); Red Cell Distribution Width 18.6 % (11.5-14.5); White Blood Count 15.2 K/mcL (4.3-11.1)
[2021-09-20 18:24] LABS: INR 1.5; Prothrombin Time 16.7 Seconds (9.4-12.1)
[2021-09-20 18:47] LABS: Alanine Aminotransferase 46 Units/L (7-52); Albumin 2.5 g/dL (3.5-5.7); Albumin/Globulin Ratio 0.7 (1.1-2.2); Alkaline Phosphatase 215 Units/L (34-104); Aspartate Amino Transferase 105 Units/L (13-39); BUN/Creatinine Ratio 12 (6-26); Bilirubin,Direct 5.2 mg/dL (0.0-0.2); Bilirubin,Indirect 5.3 mg/dL (0.0-1.0); Bilirubin,Total 10.5 mg/dL (0.3-1.0); Blood Urea Nitrogen 16 mg/dL (6-20); Calcium 7.8 mg/dL (8.6-10.3); Carbon Dioxide 25 mEq/L (23-29); Chloride 87 mEq/L (98-107); Creatine Kinase 19 Units/L (30-223); Globulin 3.4 g/dL (2.4-3.5); Glucose 93 mg/dL (70-105); Osmolality,Calculated 261 (280-300); Potassium 3.1 mEq/L (3.5-5.1); Sodium 125 mEq/L (136-145); Total Protein 5.9 g/dL (6.4-8.9); Troponin I 0.05 ng/mL (< 0.04); eGFR For African Americans > 60 (> 60); eGFR For Non-African Americans 56 (> 60)
[2021-09-20] MEDS ORDERED: 0.9 % Sodium Chloride 1,000 ML IVC ONE ×2 (20:50→23:43)
[2021-09-20] MEDS ORDERED: Iopamidol - 370 500 ML MLS IVP ONE (20:51)
[2021-09-20 22:17] LABS: Amorphous Sediment,Urine Few per hpf (None-Few); Bacteria,Urine Few per hpf (None-Few); Bilirubin,Urine Moderate (Negative); Blood,Urine Negative (Negative); Clarity,Urine Turbid (Clear); Color,Urine Dark-Orange (Yellow); Glucose,Urine (UA) Normal (Normal); Granular Casts,Urine Few per lpf (None Seen); Hyaline Casts,Urine Many per lpf (None Seen); Ketones,Urine Negative (Negative); Leukocyte Esterase,Urine Negative (Negative); Mucus,Urine Few per lpf (None-Few); Nitrite,Urine Negative (Negative); Protein,Urine 30 mg/dL (Neg-Trace); Specific Gravity,Urine 1.023 (1.010-1.025); Squamous Epithelial Cell,Urine Few per hpf (None-Few); Urobilinogen,Urine >=8.0 mg/dL (Normal)
[2021-09-20 22:29] LABS: Amphetamine Screen,Urine Negative ng/mL (Cutoff=1000); Barbiturate Screen,Urine Negative ng/mL (Cutoff=200); Benzodiazepines Screen,Urine Negative ng/mL (Cutoff=200); Cannabinoid Screen,Urine Negative ng/mL (Cutoff = 50); Cocaine Screen,Urine Negative ng/mL (Cutoff= 300); Opiate Screen,Urine Negative ng/mL (Cutoff=300); Phencyclidine Screen,Urine Negative ng/mL (Cutoff=25)
[2021-09-20] MEDS ORDERED: Ampicillin/Sulbactam 3,000 MG in 0.9 % Sodium Chloride Mini Bag 100 ML IVPB ONE (23:42)
[2021-09-21] MEDS ORDERED: Albumin 25% 25gram/100mL 25 GM/100 ML IV.SOLN IVPB ONE (00:14)
[2021-09-21 01:55] LABS: Magnesium 1.4 mg/dL (1.6-2.6)
[2021-09-21 01:56] LABS: Troponin I < 0.03 ng/mL (< 0.04)
[2021-09-21] MEDS ORDERED: Magnesium Sulfate 1 GM/102 ML PIGGYBACK IVPB ONE (01:58)
[2021-09-21] MEDS ORDERED: Naloxone 0.4 MG/ML INJ IVP PRN (04:03)
[2021-09-21] MEDS ORDERED: Melatonin 3 MG TABLET PO PRN (04:03)
[2021-09-21] MEDS ORDERED: Acetaminophen 325 MG TABLET PO PRN (04:03)
[2021-09-21] MEDS ORDERED: Ondansetron 4 MG/2 ML VIAL IVP PRN (04:03)
[2021-09-21] MEDS ORDERED: Thiamine (B-1) 100 MG in 0.9 % Sodium Chloride 50 ML IVPB STA (04:05)
[2021-09-21] MEDS ORDERED: Dextrose Gel 15 GM/37.5 ML TUBE PO PRN ×2 (04:06)
[2021-09-21] MEDS ORDERED: D5% in Water 1,000 ML IVC PRN (04:06)
[2021-09-21] MEDS ORDERED: *HR* Dextrose 50 % in Water (Syg) 50 ML SYRINGE IVP PRN (04:06)
[2021-09-21] MEDS ORDERED: *HR* LORazepam 2 MG/ML VIAL IVP PRN ×3 (04:20)
[2021-09-21] MEDS ORDERED: Saliva Stimulant 44.3ml BOTTLE PO PRN (04:43)
[2021-09-21] MEDS ORDERED: Calcium Gluconate 1gm/50mL 1 GM/50 ML BAG IVPB ONE (05:06)
[2021-09-21 05:55] LABS: Basophils % 0.1 %; Eosinophils # 0.1 K/mcL (0.0-0.6); Eosinophils % 0.7 %; Hemoglobin 6.5 g/dL (12.9-16.9); Immature Granulocytes % 0.9 % (0-4); Lymphocytes # 1.2 K/mcL (0.6-4.6); Lymphocytes % 9.1 %; Mean Corpuscular HGB Conc 32.5 g/dL (31.6-35.5); Mean Corpuscular Hemoglobin 34.9 pg (28.0-33.3); Mean Corpuscular Volume 107.5 fL (83.0-100.0); Mean Platelet Volume 9.3 fL (9.4-12.4); Monocytes # 0.9 K/mcL (0.0-1.3); Monocytes % 6.4 %; Neutrophils # 11.1 K/mcL (1.6-8.9); Platelet Count 172 K/mcL (140-400); Red Blood Count 1.86 M/mcL (4.19-5.50); Red Cell Distribution Width 19.3 % (11.5-14.5); Segmented Neutrophils % 82.8 %; White Blood Count 13.4 K/mcL (4.3-11.1)
[2021-09-21] MEDS: 0.9 % Sodium Chloride 1,000 ML IVC SCH ×2 (05:58→23:20)
[2021-09-21 06:02] LABS: INR 1.5; Prothrombin Time 16.8 Seconds (9.4-12.1)
[2021-09-21 06:05] LABS: Activated Partial Thrombo Time 28.6 Seconds (26.0-36.0)
[2021-09-21 06:17] LABS: Alanine Aminotransferase 42 Units/L (7-52); Albumin 2.5 g/dL (3.5-5.7); Albumin/Globulin Ratio 0.9 (1.1-2.2); Alkaline Phosphatase 170 Units/L (34-104); Aspartate Amino Transferase 104 Units/L (13-39); BUN/Creatinine Ratio 15 (6-26); Bilirubin,Total 8.5 mg/dL (0.3-1.0); Blood Urea Nitrogen 16 mg/dL (6-20); Calcium 7.2 mg/dL (8.6-10.3); Carbon Dioxide 20 mEq/L (23-29); Chloride 93 mEq/L (98-107); Ethanol < 10 mg/dL (Less than 10); Globulin 2.7 g/dL (2.4-3.5); Glucose 79 mg/dL (70-105); Lactate Dehydrogenase 184 Units/L (140-271); Magnesium 1.7 mg/dL (1.6-2.6); Osmolality,Calculated 262 (280-300); Potassium 3.5 mEq/L (3.5-5.1); Sodium 126 mEq/L (136-145); Total Protein 5.2 g/dL (6.4-8.9); Troponin I < 0.03 ng/mL (< 0.04); eGFR For African Americans > 60 (> 60); eGFR For Non-African Americans > 60 (> 60)
[2021-09-21] MEDS ORDERED: Pantoprazole 40 MG VIAL IVP ONE (06:25)
[2021-09-21] MEDS ORDERED: Octreotide 50 MCG/ML INJ IVP ONE (06:26)
[2021-09-21] MEDS: Calcium Gluconate 1gm/50mL 1 GM/50 ML BAG IVPB SCH ×2 (06:52→09:43)
[2021-09-21] MEDS ORDERED: Perflutren Lipid Microsphere 1.3 ML in 0.9 % Sodium Chloride 8.7 ML IVP PRN (07:08)
[2021-09-21 07:28] LABS: Adenovirus Not Detected (Not Detect); Bordetella Pertussis Not Detected (Not Detect); Chlamydophila pneumoniae Not Detected (Not Detect); Coronavirus 229E Not Detected (Not Detect); Coronavirus HKU1 Not Detected (Not Detect); Coronavirus NL63 Not Detected (Not Detect); Coronavirus OC43 Not Detected (Not Detect); Human Metapneumovirus Not Detected (Not Detect); Human Rhinovirus/Enterovirus Not Detected (Not Detect); Influenza A Subtype 2009 H1 Not Detected (Not Detect); Influenza B Not Detected (Not Detect); Mycoplasma pneumoniae Not Detected (Not Detect); Parainfluenza Virus 1 Not Detected (Not Detect); Parainfluenza Virus 2 Not Detected (Not Detect); Parainfluenza Virus 3 Not Detected (Not Detect); Parainfluenza Virus 4 Not Detected (Not Detect); Respiratory Syncytial Virus Not Detected (Not Detect); SARS-CoV-2 Not Detected (Not Detect)
[2021-09-21] MEDS: Ipratropium/Albuterol Neb 3 ML IH SCH ×5 (07:40→23:04)
[2021-09-21] MEDS: Budesonide/Formoterol 160/4.5 1 PUFF INH IH SCH ×2 (07:42→20:18)
[2021-09-21] MEDS ORDERED: Spironolactone 12.5 MG TABLET PO SCH (09:00)
[2021-09-21] MEDS ORDERED: Chlorhexidine Rinse 15 ML MOUTHWASH MM SCH (09:00)
[2021-09-21] MEDS: MetroNIDAZOLE 500 MG/100 ML 500 MG/100 ML BAG IVPB SCH ×3 (09:42→23:16)
[2021-09-21] MEDS: Octreotide 400 MCG in 0.9 % Sodium Chloride 100 ML IVC SCH ×2 (09:42→17:31)
[2021-09-21] MEDS: Lactobacillus 1 EACH CAP.SPRINK PO SCH ×2 (10:09→21:07)
[2021-09-21] MEDS: Thiamine (B-1) 100 MG TABLET PO SCH (10:09)
[2021-09-21] MEDS: Furosemide 20 MG TABLET PO SCH (10:09)
[2021-09-21] MEDS: Vitamin B Complex/Vit C/Vit E 1 EACH TABLET PO SCH (10:09)
[2021-09-21] MEDS: Folic Acid 1 MG TABLET PO SCH (10:09)
[2021-09-21] MEDS: cefTRIAXone 2,000 MG in 0.9 % Sodium Chloride 20 ML IVP SCH (10:10)
[2021-09-21] MEDS: Lactulose Oral Soln 20 GM/30 ML UDC PO SCH ×2 (10:10→21:08)
[2021-09-21] MEDS: Nicotine 21 MG PATCH.TD24 TD SCH (10:10)
[2021-09-21 13:31] LABS: Amphetamine Screen,Urine Negative ng/mL (Cutoff=1000); Barbiturate Screen,Urine Negative ng/mL (Cutoff=200); Benzodiazepines Screen,Urine Negative ng/mL (Cutoff=200); Cannabinoid Screen,Urine Negative ng/mL (Cutoff = 50); Chloride,Urine 44 mEq/L; Cocaine Screen,Urine Negative ng/mL (Cutoff= 300); Creatinine,Urine 84 mg/dL; Opiate Screen,Urine Negative ng/mL (Cutoff=300); Phencyclidine Screen,Urine Negative ng/mL (Cutoff=25); Potassium,Urine 34.3 mEq/L; Protein/Creatinine Ratio,Urine 0.26 mg/mg (0.00-0.20)
[2021-09-21] MEDS ORDERED: 0.9 % Sodium Chloride 250 ML ONE (13:55)
[2021-09-21 16:00] LABS: Glucose,Peritoneal Fluid 77 mg/dL (No Ref Range); LDH,Peritoneal Fluid 47 Units/L (No Ref Range); Total Protein,Peritoneal Fluid < 2.0 g/dL
[2021-09-21] MEDS: Albumin 25% 25gram/100mL 25 GM/100 ML IV.SOLN IVPB SCH ×2 (16:01→23:22)
[2021-09-21] MEDS: Pantoprazole 40 MG VIAL IVP SCH (17:32)
[2021-09-21 18:22] LABS: RBC,Peritoneal Fluid < 2000 RBC/mcL
[2021-09-21 18:55] LABS: Appearance of Peritoneal Fl CLEAR (Clear)
[2021-09-21 19:40] LABS: Basophils,Peritoneal Fluid 0 %; Eosinophils,Peritoneal Fluid 0 %
[2021-09-22] MEDS: Octreotide 400 MCG in 0.9 % Sodium Chloride 100 ML IVC SCH (03:40)
[2021-09-22] MEDS: Ipratropium/Albuterol Neb 3 ML IH SCH ×2 (04:40→07:20)
[2021-09-22] MEDS: Pantoprazole 40 MG VIAL IVP SCH (05:18)
[2021-09-22 06:41] LABS: Folate 4.3 ng/mL (3.0-16.0)
[2021-09-22 06:46] LABS: Vitamin B12 > 1500 pg/mL (250-1100)
[2021-09-22 07:12] VITALS: PULSE 90; TEMP 98.8; O2SAT 94
[2021-09-22] MEDS: Budesonide/Formoterol 160/4.5 1 PUFF INH IH SCH (07:20)
[2021-09-22 08:14] LABS: Thyroid Stimulating Hormone 1.262 mcIU/mL (0.340-5.600)
[2021-09-22] MEDS: Lactulose Oral Soln 20 GM/30 ML UDC PO SCH (08:40)
[2021-09-22] MEDS: Lactobacillus 1 EACH CAP.SPRINK PO SCH (08:41)
[2021-09-22] MEDS: Vitamin B Complex/Vit C/Vit E 1 EACH TABLET PO SCH (08:41)
[2021-09-22] MEDS: Furosemide 20 MG TABLET PO SCH (08:41)
[2021-09-22] MEDS: Thiamine (B-1) 100 MG TABLET PO SCH (08:41)
[2021-09-22] MEDS: Folic Acid 1 MG TABLET PO SCH (08:41)
[2021-09-22] MEDS: Nicotine 21 MG PATCH.TD24 TD SCH (08:42)
[2021-09-22] MEDS: MetroNIDAZOLE 500 MG/100 ML 500 MG/100 ML BAG IVPB SCH (08:42)
[2021-09-22] MEDS: cefTRIAXone 2,000 MG in 0.9 % Sodium Chloride 20 ML IVP SCH (08:42)
[2021-09-22 08:58] VITALS: BP 108/67
[2021-09-22] MEDS: Albumin 25% 25gram/100mL 25 GM/100 ML IV.SOLN IVPB SCH (09:04)
[2021-09-22 09:34] LABS: Hematocrit 23.3 % (37.5-50.1); Hemoglobin 7.8 g/dL (12.9-16.9)
== END 2021-09-22 09:55 | disposition left against medical advice (07) ==
LOC: 3BNU 15:15 → EMEROOARM 15:15 → SUATTDRO 09-21 03:40 → 3BNU 09-21 03:49 → SUATTDRO 09-21 12:54 → 2ANU 09-21 19:22
PROVIDERS: ADMIT Internal Medicine; ATTEND Pharmacist